=== PATIENT | female | born 1965 | race Hispanic/Latino ===

== ENCOUNTER 2019-02-21 16:41 | Emergency (ER) | payer BC, SELFPAY ==
--- OUTSIDE RECORDS SUMMARY | 2019-02-21 16:43 | XMS REPORT ---
:1965 Author Organization [facility] Address [address] [place] [address] Dr. Tabares [address] [place] [id number] Care Team Providers Name Role Phone Unavailable Unavailable Unavailable Problems This patient has no known problems. Allergies, Adverse Reactions, Alerts This patient has no known allergies or adverse reactions. Medications This patient has no known medications.
--- NOTE | 2019-02-21 18:06 | RAD REPORT ---
EXAM DESCRIPTION: US - Abdomen Exam Limited - 02/21/2019 5:52 pm CLINICAL HISTORY: Abdominal pain. COMPARISON: None. FINDINGS: Multiple gallstones. The gallbladder wall appears mildly thickened. The biliary tree is normal caliber. IMPRESSION: Cholelithiasis. Mild gallbladder wall thickening may indicate cholecystitis
--- NOTE | 2019-02-21 18:07 | RAD REPORT ---
EXAM DESCRIPTION: Kendell Single View02/21/2019 5:54 pm CLINICAL HISTORY: cough COMPARISON: none FINDINGS: The lungs appear clear of acute infiltrate. The heart is normal size IMPRESSION: No acute abnormalities displayed
[2019-02-21] MEDS ORDERED: FAMOTIDINE 20 MG/2 ML VIAL IV ONE (18:19)
[2019-02-21] MEDS ORDERED: ONDANSETRON 4 MG/2 ML VIAL ONE (18:19)
[2019-02-21] MEDS ORDERED: PIPER/TAZO/NS 3.375gm 3.375 GM/100 ML BAG ONE (18:19)
[2019-02-21] MEDS ORDERED: MORPHINE 4 MG/ML SYR ONE (18:19)
[2019-02-21] MEDS ORDERED: NA CHLORIDE 0.9% 1,000 ML ONE (18:19)
[2019-02-21 18:36] LABS: Absolute Lymphocytes (CBC) 0.9 K/uL (0.7-4.9); Basophils % 0.2 % (0-1.3); Hematocrit 34.9 % (36.0-45.0); MPV 8.6 fL (7.6-11.3); RBC Red Blood Cell Count 3.64 M/uL (3.86-4.86)
[2019-02-21 18:43] LABS: Protime INR 1.24
[2019-02-21 19:07] LABS: ALT/SGPT 161 U/L (12-78); AST/SGOT 97 U/L (15-37); Albumin 3.8 g/dL (3.4-5.0); Alkaline Phosphatase 149 U/L (45-117); BUN Blood Urea Nitrogen 23 mg/dL (7-18); Bicarbonate 30 mmol/L (21-32); Bilirubin Direct 1.1 mg/dL (0-0.2); Bilirubin Total 4.7 mg/dL (0.2-1.0); Glucose Level 94 mg/dL (74-106); Magnesium 2.4 mg/dL (1.8-2.4); NT PRO-BNP 171 pg/mL (<125); Potassium 3.8 mmol/L (3.5-5.1); Protein, Total 7.5 g/dL (6.4-8.2); Sodium Level 138 mmol/L (136-145); Troponin (Emerg Dept Use Only) < 0.02 ng/mL (0.0-0.045)
--- NOTE | 2019-02-21 19:30 | ER ---
Nurse's Notes [facility] Name: Emma Bae Age: 53 yrs Sex: Female : 1965 Arrival Date: 02/21/2019 Time: 16:42 Bed 7 Private MD: Maico Flores H Diagnosis: Cholecystitis;Cholelithiasis-choledocolithiasis;Abdominal tenderness Presentation: 02/21 17:26 Presenting complaint: Patient states: since Thursday i have been hurting in the right tw2 side of my stomach, i went to [facility] and they did a CT, and dr. 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 Transition of care: patient was not received from another setting of care. Onset of symptoms was February 21, 2019. Risk Assessment: Do you want to hurt yourself or someone else? Patient reports no desire to harm self or others. Initial Sepsis Screen: Does the patient meet any 2 criteria? No. Patient's initial sepsis screen is negative. Does the patient have a suspected source of infection? No. Patient's initial sepsis screen is negative. Care prior to arrival: None. 17:26 Method Of Arrival: Ambulatory tw2 17:26 Acuity: SYDNEY 3 tw2 Triage Assessment: 17:27 Pain: Complains of pain in right upper quadrant and right lower quadrant. GI: Reports tw2 lower abdominal pain, upper abdominal pain, nausea, vomiting. 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 - Family history:: not pertinent. - Social history:: Smoking status: Patient/guardian denies using tobacco. - Ebola Screening: : No symptoms or risks identified at this time. Screenin:51 Abuse screen: Denies threats or abuse. Nutritional screening: No deficits noted. sv Tuberculosis screening: No symptoms or risk factors identified. Fall Risk None identified. Assessment: 17:45 General: Appears in no apparent distress. Behavior is calm, cooperative. Pain: Pain hb currently is 8 out of 10 on a pain scale. Neuro: Level of Consciousness is awake, alert, obeys commands, Oriented to person, place, time, situation. Cardiovascular: Heart tones S1 S2 present Capillary refill < 3 seconds Patient's skin is warm and dry. Respiratory: Airway is patent Respiratory effort is even, unlabored, Respiratory pattern is regular, symmetrical, Breath sounds are clear bilaterally. GI: Abdomen is non-distended, Bowel sounds present X 4 quads. Abd is soft X 4 quads Abdomen is tender to palpation RUQ Reports upper abdominal pain, nausea. : No signs and/or symptoms were reported regarding the genitourinary system. EENT: No signs and/or symptoms were reported regarding the EENT system. Derm: Skin is dry, Skin is jaundiced, Skin temperature is warm. Musculoskeletal: No signs and/or symptoms reported regarding the musculoskeletal system. 18:45 Reassessment: Patient appears in no apparent distress at this time. Patient and/or hb family updated on plan of care and expected duration. Pain level reassessed. Patient is alert, oriented x 3, equal unlabored respirations, skin warm/dry/pink. 19:20 Reassessment: Patient and/or family updated on plan of care and expected duration. Pain vc level reassessed. Patient is alert, oriented x 3, equal unlabored respirations, skin warm/dry/pink. Patient denies pain at this time. 19:23 Reassessment: Patient ambulating to bathroom with . vc 20:35 Reassessment: Report called to Nadiya ZIMMER at [facility]. ea 21:03 Reassessment: Patient and/or family updated on plan of care and expected duration. Pain ea level reassessed. Patient is alert, oriented x 3, equal unlabored respirations, skin warm/dry/pink. Report given to [facility]. Pt left ED via stretcher per EMS. Pt tolerating well. Patient denies pain at this time. Vital Signs: 17:27 BP 144 / 79; Pulse 88; Resp 17; Temp 98.2(TE); Pulse Ox 96% on R/A; Weight 64.86 kg tw2 (R); Height 5 ft. 2 in. (157.48 cm); Pain 10/10; 18:15 BP 123 / 75; Pulse 82; Resp 15; Pulse Ox 99% on R/A; hb 19:00 BP 101 / 63; Pulse 95; Resp 18; Pulse Ox 99% on R/A; Pain 0/10; vc 20:30 BP 110 / 69; Pulse 104; Resp 18; Temp 99.7; Pulse Ox 97% on R/A; oe 21:04 BP 103 / 64; Pulse 98; Resp 18; Pulse Ox 98% ; ea 17:27 Body Mass Index 26.15 (64.86 kg, 157.48 cm) tw2 ED Course: 16:42 Patient arrived in ED. as 16:43 Maico Flores MD is Private Physician. as 17:01 Agustin Ibarra MD is Attending Physician. uma 17:27 Triage completed. tw2 17:29 Arm band placed on. tw2 17:44 Ella Alfaro, RN is Primary Nurse. hb 17:53 US Abdomen Limited In Process Unspecified. EDMS 17:54 XRAY Chest (1 view) In Process Unspecified. EDMS 18:11 Initial lab(s) drawn, by ri, sent to lab. Inserted saline lock: 22 gauge in left dh3 antecubital area, using aseptic technique. Blood collected. 18:51 Patient has correct armband on for positive identification. Placed in gown. Bed in low sv position. Call light in reach. Side rails up X 1. Pulse ox on. NIBP on. 18:51 EKG done, by ED staff, reviewed by Agustin Ibarra MD. sv 19:45 Urine Culture Sent. oe 21:02 No provider procedures requiring assistance completed. Patient transferred, IV remains vc in place. Administered Medications: 18:27 Drug: morphine 4 mg Route: IVP; Site: left antecubital; hb 19:25 Follow up: Response: No adverse reaction; Pain is decreased vc 18:27 Drug: Zofran 4 mg Route: IVP; Site: left antecubital; hb 19:25 Follow up: Response: No adverse reaction; Nausea is decreased vc 18:28 Drug: Pepcid 20 mg Route: IVP; Site: left antecubital; hb 19:26 Follow up: Response: No adverse reaction vc 18:28 Drug: Zosyn 3.375 grams Route: IVPB; Infused Over: 60 mins; Site: left antecubital; hb 18:28 Drug: NS 0.9% 1000 ml Route: IV; Rate: 1 bolus; Site: left antecubital; hb Outcome: 19:28 ER care complete, transfer ordered by MD. eaton 21:03 Transferred by ground EMS to [facility]. vc 21:03 Condition: good vc 21:03 Instructed on the need for transfer. 21:04 Patient left the ED. ea Signatures: Dispatcher [employer] Susan Castellano, Agustin Funk RN, MD MD cha Martinez, Amelia as Baxter, Heather, RN RN hb Wise, Tara RN RN 2 Jaciel Benitez [facility] Nathalie Masters RN RN Joanne Beaulieu RN GORAN yepez
--- NOTE | 2019-02-21 19:31 | EDPHYS ---
Physician Documentation [facility] Name: Emma Bae Age: 53 yrs Sex: Female : 1965 Arrival Date: 02/21/2019 Time: 16:42 Bed 7 Private MD: Maico Flores H ED Physician Agustin Ibarra HPI: 02/21 18:00 This 53 yrs old Female presents to ER via Ambulatory with complaints of uma Abdominal Pain. 18:00 The patient presents with abdominal pain in the epigastric area, in the upper abdomen, uma abdominal distention in the epigastric area, in the upper abdomen. Onset: The symptoms/episode began/occurred 2 day(s) ago. The symptoms radiate to back. Associated signs and symptoms: none. The symptoms are described as crampy, steady. Modifying factors: The symptoms are alleviated by nothing, the symptoms are aggravated by food, movement, pressure. Severity of pain: At its worst the pain was moderate in the emergency department the pain is unchanged. The patient has not experienced similar symptoms in the past. 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 - Family history:: not pertinent. - Social history:: Smoking status: Patient/guardian denies using tobacco. - Ebola Screening: : No symptoms or risks identified at this time. ROS: 18:00 Constitutional: Negative for fever, chills, and weight loss, Eyes: Negative for injury, uma pain, redness, and discharge, ENT: Negative for injury, pain, and discharge, Neck: Negative for injury, pain, and swelling, Cardiovascular: Negative for chest pain, palpitations, and edema, Respiratory: Negative for shortness of breath, cough, wheezing, and pleuritic chest pain, Back: Negative for injury and pain, : Negative for injury, bleeding, discharge, and swelling, MS/Extremity: Negative for injury and deformity, Neuro: Negative for headache, weakness, numbness, tingling, and seizure, Psych: Negative for depression, anxiety, suicide ideation, homicidal ideation, and hallucinations, Allergy/Immunology: Negative for hives, rash, and allergies, Endocrine: Negative for neck swelling, polydipsia, polyuria, polyphagia, and marked weight changes, Hematologic/Lymphatic: Negative for swollen nodes, abnormal bleeding, and unusual bruising. 18:00 Abdomen/GI: Positive for abdominal pain, of the epigastric area, right upper quadrant and left upper quadrant. 18:00 Skin: Positive for jaundice, diffusely. Exam: 18:00 Constitutional: This is a well developed, well nourished patient who is awake, alert, uma and in no acute distress. Head/Face: Normocephalic, atraumatic. Eyes: Pupils equal round and reactive to light, extra-ocular motions intact. Lids and lashes normal. Conjunctiva and sclera are non-icteric and not injected. Cornea within normal limits. Periorbital areas with no swelling, redness, or edema. ENT: Nares patent. No nasal discharge, no septal abnormalities noted. Tympanic membranes are normal and external auditory canals are clear. Oropharynx with no redness, swelling, or masses, exudates, or evidence of obstruction, uvula midline. Mucous membranes moist. Neck: Trachea midline, no thyromegaly or masses palpated, and no cervical lymphadenopathy. Supple, full range of motion without nuchal rigidity, or vertebral point tenderness. No Meningismus. Chest/axilla: Normal chest wall appearance and motion. Nontender with no deformity. No lesions are appreciated. Cardiovascular: Regular rate and rhythm with a normal S1 and S2. No gallops, murmurs, or rubs. Normal PMI, no JVD. No pulse deficits. Respiratory: Lungs have equal breath sounds bilaterally, clear to auscultation and percussion. No rales, rhonchi or wheezes noted. No increased work of breathing, no retractions or nasal flaring. Back: No spinal tenderness. No costovertebral tenderness. Full range of motion. MS/ Extremity: Pulses equal, no cyanosis. Neurovascular intact. Full, normal range of motion. Neuro: Awake and alert, GCS 15, oriented to person, place, time, and situation. Cranial nerves II-XII grossly intact. Motor strength 5/5 in all extremities. Sensory grossly intact. Cerebellar exam normal. Normal gait. Psych: Awake, alert, with orientation to person, place and time. Behavior, mood, and affect are within normal limits. 18:00 Abdomen/GI: Inspection: abdomen appears normal, Bowel sounds: normal, Palpation: moderate abdominal tenderness, in the epigastric area, right upper quadrant and left upper quadrant, Liver: no appreciated palpable abnormalities, Hernia: not appreciated. Vital Signs: 17:27 BP 144 / 79; Pulse 88; Resp 17; Temp 98.2(TE); Pulse Ox 96% on R/A; Weight 64.86 kg tw2 (R); Height 5 ft. 2 in. (157.48 cm); Pain 10/10; 18:15 BP 123 / 75; Pulse 82; Resp 15; Pulse Ox 99% on R/A; hb 19:00 BP 101 / 63; Pulse 95; Resp 18; Pulse Ox 99% on R/A; Pain 0/10; vc 20:30 BP 110 / 69; Pulse 104; Resp 18; Temp 99.7; Pulse Ox 97% on R/A; oe 21:04 BP 103 / 64; Pulse 98; Resp 18; Pulse Ox 98% ; ea 17:27 Body Mass Index 26.15 (64.86 kg, 157.48 cm) tw2 MDM: 17:31 Patient medically screened. [facility] 18:02 Data reviewed: vital signs, nurses notes, lab test result(s), EKG, radiologic studies, [facility] plain films, ultrasound. 02/21 17:03 Order name: Basic Metabolic Panel; Complete Time: 19:19 [facility] 02/21 17:03 Order name: CBC with Diff; Complete Time: 20:12 [facility] 02/21 17:03 Order name: LFT's; Complete Time: 19:19 [facility] 02/21 17:03 Order name: Magnesium; Complete Time: 19:19 [facility] 02/21 17:03 Order name: NT PRO-BNP; Complete Time: 19:19 [facility] 02/21 17:03 Order name: PT-INR; Complete Time: 19:07 [facility] 02/21 17:03 Order name: Troponin (emerg Dept Use Only); Complete Time: 19:19 [facility] 02/21 17:03 Order name: XRAY Chest (1 view); Complete Time: 18:23 [facility] 02/21 17:03 Order name: US Abdomen Limited; Complete Time: 18:23 [facility] 02/21 17:03 Order name: Urine Culture [facility] 02/21 18:48 Order name: CBC Smear Scan; Complete Time: 20:12 [facility] 02/21 19:21 Order name: Lipase; Complete Time: 20:09 [facility] 02/21 19:42 Order name: Urine Dipstick--Ancillary (enter results) la 02/21 20:12 Order name: Lactate [facility] 02/21 17:03 Order name: EKG; Complete Time: 17:05 [facility] 02/21 17:03 Order name: Cardiac monitoring; Complete Time: 18:28 [facility] 02/21 17:03 Order name: EKG - Nurse/Tech; Complete Time: 18:28 [facility] 02/21 17:03 Order name: IV Saline Lock; Complete Time: 18:28 [facility] 02/21 17:03 Order name: Labs collected and sent; Complete Time: 18:28 [facility] 02/21 17:03 Order name: O2 Per Protocol; Complete Time: 18:28 [facility] 02/21 17:03 Order name: O2 Sat Monitoring; Complete Time: 18:31 [facility] 02/21 17:03 Order name: Urine Dipstick-Ancillary (obtain specimen); Complete Time: 19:38 [facility] Administered Medications: 18:27 Drug: morphine 4 mg Route: IVP; Site: left antecubital; hb 19:25 Follow up: Response: No adverse reaction; Pain is decreased vc 18:27 Drug: Zofran 4 mg Route: IVP; Site: left antecubital; hb 19:25 Follow up: Response: No adverse reaction; Nausea is decreased vc 18:28 Drug: Pepcid 20 mg Route: IVP; Site: left antecubital; hb 19:26 Follow up: Response: No adverse reaction vc 18:28 Drug: Zosyn 3.375 grams Route: IVPB; Infused Over: 60 mins; Site: left antecubital; hb 18:28 Drug: NS 0.9% 1000 ml Route: IV; Rate: 1 bolus; Site: left antecubital; hb Disposition: 02/21/19 19:28 Transfer ordered to [facility]. Diagnosis are Cholecystitis, Cholelithiasis - choledocolithiasis, Abdominal tenderness. - Reason for transfer: Higher level of care. - Accepting physician [facility]. - Condition is Stable. - Problem is new. - Symptoms have improved. Signatures: Dispatcher [employer] EDAgustin Sutherland MD MD cha Baxter, Heather, RN RN Melia Hagen RN RN tw2 Nathalie Masters RN RN Joanne Beaulieu RN RN vc Corrections: (The following items were deleted from the chart) 21:04 19:28 02/21/2019 19:28 Transfer ordered to [facility]. Diagnosis is ea Cholecystitis; Cholelithiasis - choledocolithiasis; Abdominal tenderness. Reason for transfer: Higher level of care. Accepting physician [facility]. Condition is Stable. Problem is new. Symptoms have improved. uma
[2019-02-21 20:10] LABS: Blood Morphology Comment NOTED (NOT SEEN); Platelet Estimate ADEQ; Urine White Blood Cell Casts OK
[2019-02-21 20:11] LABS: Anisocytosis 1+; Poikilocytosis 1+
[2019-02-21 21:07] LABS: Urine Blood 2+ (NEG); Urine Glucose NEGATIVE (NEG); Urine Protein 1+ (NEG); Urine Specific Gravity 1.025 (1.005-1.030)
[2019-02-21 21:27] VITALS: TEMP 99.7
[2019-02-21 21:29] VITALS: BP 103/64; O2SAT 98
--- NOTE | 2019-02-22 09:00 | EKG ---
Test Date: 2019-02-21 Test Time: 18:42:20 Resident Care Director: ORACIO MEASUREMENT RESULTS: Intervals: Rate: 93 WI: 134 QRSD: 88 QT: 330 QTc: 410 [place]: P: 37 WI: 134 QRS: 24 T: 15 INTERPRETIVE STATEMENTS: Normal sinus rhythm Cannot rule out Anterior infarct, age undetermined Abnormal ECG No previous ECG available for comparison Electronically Signed On 02-22-19 08:57:55 AIRCRAFT MAINTENANCE SUPERVISOR by Tylor Georges
== END 2019-02-21 21:04 | disposition short-term general hospital (02) ==
LOC: ER 16:41
DX: K80.10 Calculus of gallbladder with chronic cholecystitis without obstruction (principal); K80.50 Calculus of bile duct without cholangitis or cholecystitis without obstruction
CPT/HCPCS: 36415; 71045; 76705; 80048; 80076; 81003; 83605; 83690; 83735; 83880; 84484; 85025; 85610; 87086; 87088; 93005; 96374; 96375; 99285; J2405; J2543; J7030

== ENCOUNTER 2019-11-18 05:59 | Day surgery (SDC) | payer OTHER ==
--- NOTE | 2019-11-11 12:14 | RAD REPORT ---
EXAM DESCRIPTION: Kendell Garvin (2 Views)11/11/2019 12:08 pm CLINICAL HISTORY: Preop for rotator cuff repair COMPARISON: February 2019 FINDINGS: The lungs appear clear of acute infiltrate. The heart is normal size IMPRESSION: No acute abnormalities displayed
[2019-11-11 12:32] LABS: Absolute Lymphocytes (CBC) 1.7 K/uL (0.7-4.9); Hematocrit 35.8 % (36.0-45.0); Lymphocytes % 47.1 % (15.3-44.8); MPV 8.1 fL (7.6-11.3); RBC Red Blood Cell Count 3.68 M/uL (3.86-4.86)
[2019-11-11 12:36] LABS: Protime INR 0.94
[2019-11-11 12:50] LABS: BUN Blood Urea Nitrogen 20 mg/dL (7-18); Bicarbonate 32 mmol/L (21-32); Glucose Level 88 mg/dL (74-106); Potassium 3.9 mmol/L (3.5-5.1); Sodium Level 145 mmol/L (136-145)
[2019-11-18] MEDS ORDERED: Ringers Lactate 1,000 ML IV ONE (06:25)
[2019-11-18] MEDS ORDERED: CEFAZOLIN/SWI 1gm 1 GM/10 ML SYR ONE (06:26)
[2019-11-18] MEDS ORDERED: LIDOCAINE 2% MPF 5 ML VIAL ONE ×2 (06:47→07:30)
[2019-11-18] MEDS ORDERED: MIDAZOLAM HCL 2 MG/2 ML INJ ONE (06:48)
[2019-11-18] MEDS ORDERED: FENTANYL CITR 250 MCG/5 ML ONE (06:48)
[2019-11-18] MEDS ORDERED: dexAMETHasone 10 MG/ML VIAL ONE ×2 (06:48→07:34)
[2019-11-18] MEDS ORDERED: ROPLVACAINE HCL 40 ML ONE (06:49)
[2019-11-18] MEDS ORDERED: EPINEPHRINE/PF 1 MG/ML AMP ONE (07:13)
[2019-11-18] MEDS ORDERED: propofoL 200 MG/20 ML VIAL IV ONE (07:29)
[2019-11-18] MEDS ORDERED: ROCURONIUM 50 MG/5 ML VIAL IV ONE (07:30)
[2019-11-18] MEDS ORDERED: ONDANSETRON 4 MG/2 ML VIAL ONE (07:34)
[2019-11-18] MEDS ORDERED: KETOROLAC 30 MG/ML INJ ONE (07:34)
[2019-11-18] MEDS ORDERED: GLYCOPYRROLATE 0.2 MG/ML SYR ONE (09:50)
[2019-11-18] MEDS ORDERED: NEOSTIGMINE 1 MG/ML -5 ML ONE (09:50)
--- NOTE | 2019-11-18 10:05 | P.BOP ---
Preoperative diagnosis: right shoulder rotator cuff tear, AC arthrosis, impingement syndrome Postoperative diagnosis: same Primary procedure: right shoulder arthroscopic rotator cuff repair Secondary procedure: right shoulder arthroscopic subacromial decompression Other procedure(s): right shoulder arthroscopic distal clavicle excision Estimated blood loss: <10 cc Specimen: none Findings: see dictation Anesthesia: General Complications: None Implants: 1- 5.5 mm Arthrex corkscrew, 2- 4.75 mm Arthrex swivelock Fluids & blood products: per anesthesia record Transferred to: Recovery Room Condition: Good
--- NOTE | 2019-11-18 10:41 | RAD REPORT ---
EXAM DESCRIPTION: RAD - Shoulder 1 View - 11/18/2019 10:28 am FINDINGS: Single internal rotation view of the right shoulder obtained after rotator cuff repair. No acute or suspicious bone or joint finding. No retained surgical instrument. No unexpected finding.
[2019-11-18 10:57] VITALS: BP 128/77; TEMP 97.1; O2SAT 96
[2019-11-18] MEDS ORDERED: HYDROCODONE/APAP 7.5/325 MG TAB ONE (11:18)
--- NOTE | 2019-11-18 22:49 | OP ---
Date of Procedure: 11/18/2019 Surgeon: Oliver Ignacio MD Preoperative Diagnoses: 1.Right shoulder rotator cuff tear. 2.Right shoulder acromioclavicular joint arthrosis. 3.Right shoulder impingement syndrome. Postoperative Diagnoses: 1.Right shoulder rotator cuff tear. 2.Right shoulder acromioclavicular joint arthrosis. 3.Right shoulder impingement syndrome. Procedures Performed: 1.Right shoulder arthroscopic rotator cuff repair. 2.Right shoulder arthroscopic subacromial decompression. 3.Right shoulder arthroscopic distal clavicle excision. Anesthesia: General endotracheal. Fluids: Per Anesthesia record. Estimated Blood Loss: Less than 10 cc. Complications: None. Implants: 1.A 5.5 mm Arthrex corkscrew. 2.A 4.75 mm Arthrex SwiveLock. Indication For Procedure: Ms. Bae is a 54-year-old female, who presented to my clinic with signs and symptoms as well as MRI findings consistent with right shoulder full-thickness rotator cuff tear, impingement syndrome, and AC joint arthrosis. I discussed with the patient at length risks and bene fits associated with operative and nonoperative treatment. She expressed understanding and elected t o proceed with operative treatment. Description Of Procedure: After informed consent was obtained, the patient was identified in the pre operative holding area. The right upper extremity was marked. She was then taken to the PACU where she underwent an interscalene block to her right upper extremity, performed by Anesthesia. She was t hen taken to the operating room, transferred to the operating table in a supine fashion and placed un petty general endotracheal anesthesia. She was then placed in a beach chair position with her extremit ies well padded. The right upper extremity was then examined. The patient had full range of motion and no instability noted. The right upper extremity was then prepped and draped in usual sterile fas hion. A time-out was initiated. The correct patient and procedure were confirmed and identified. T he patient did receive her preoperative prophylactic antibiotics. Via the posterior portal position, a spinal needle was introduced into the glenohumeral joint and the shoulder was injected with 30 cc of normal saline to distend the capsule. A posterior portal was created and arthroscope was brought in via the posterior portal and a diagnostic arthroscopy was performed. An anterior portal was creat ed under direct visualization. It was made high for later distal clavicle excision. The arthroscope was then brought into the diagnostic arthroscopy. The superior labrum was noted to be intact with n o obvious SLAP. The biceps tendon anchor was stable to probe. There were no significant tenosynovit is of the biceps tendon and no fraying noted. The subscapularis was identified. There were no signi ficant fraying or injury to the subscapularis. The humeral head did not have a significant chondroma lacia as well as the glenoid surface. The anterior and posterior labrum were found stable to probe w ith no tear. There were no loose bodies on exam found within the axillary pouch. The patient was no castillo to have a full-thickness tear of the supraspinatus. A standard lateral portal was created. Obtu rator was brought into the glenohumeral joint consistent with a full-thickness tear. The arthroscopi c shaver was then used to clean up the damaged supraspinatus tendon and again full-thickness tear was confirmed. It was then used to debride the greater tuberosity to prepare the greater tuberosity for repair the bleeding bony bed. The arthroscope was then brought in the subacromial space where a sub acromial bursectomy was performed. The supraspinatus tear was identified on the bursal side and debr ided again with an arthroscopic shaver via the lateral portal. The lateral cannula was placed in a s kalie 5.5 mm Arthrex corkscrew. [place] was placed just lateral to the articular service. It was navi ble loaded and the sutures were then passed through the supraspinatus tear in a horizontal mattress f ashion and tied. Two lateral row anchors were then placed with sutures in a crisscross fashion for i ncreased surface area contact onto the greater tuberosity. There was good overall repair and reducti on of the tear onto the greater tuberosity. The remaining suture limbs were then cut after placement onto the lateral row fixation. Next, attention was taken to the subacromial decompression. Radiofr equency ablator was then used to debride the soft tissue off the undersurface of the acromion and an arthroscopic tiarra was then used to perform an acromioplasty to debride any spurs off the undersurface of the acromion. Next, distal clavicle was identified. The anterior cannula was then placed in perla e with the AC joint and radiofrequency ablator and arthroscopic tiarra was then used to perform a dista l clavicle exception. Approximately 5 mm of distal clavicle was excised using an arthroscopic tiarra w ithout complication. The arthroscopic instruments were then removed from the portals without complic ation. The cannulas were removed. The wounds were then irrigated thoroughly with normal saline. Berry bcutaneous tissue was approximated using a 2-0 Vicryl. Skin was approximated using a 3-0 Monocryl. Sterile dressings were applied. The patient was placed in a shoulder immobilizer, awakened, and loco sferred to PACU in stable condition. Postoperative Plan: She will follow up in my clinic next week for wound check. Physical Therapy trung l be started at 3 weeks postoperatively following the medium rotator cuff repair protocol. OBINNA/FARZAD Voice ID: [id number] Report ID: [id number]
--- OUTSIDE RECORDS SUMMARY | 2019-11-23 18:22 | XMS REPORT ---
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
--- OUTSIDE RECORDS SUMMARY | 2019-11-23 18:22 | XMS REPORT ---
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 Points 2 Interpretation Negative How often did you have 6 or more drinks on one Never (0 poin ts) occasion in the past year? How many drinks did you have on a typical day when 3 or 4 (1 point) you were drinking in the past year? How often did you have a drink containing alcohol in Monthly or less (1 point) the past year? Tobacco Use/Smoking Question Answer Notes Are you a never smoker Additional Findings: Tobacco Non-User Current non-smoker REASON FOR REFERRAL No Information VITAL SIGNS No information MEDICATIONS Medication SIG (Take, Route, Frequency, Start Date End Date Status Duration) Meloxicam Active Tramadol HCl Active Escitalopram Oxalate Active Amoxicillin Not-Taking Ondansetron Not-Taking MethylPREDNISolone Not-Takin g Lorazepam Not-Taking Methocarbamol Not-Taking Ibuprofen Not-Taking PredniSONE Not-Taking Acetaminophen-Codeine #3 Not -Taking PROCEDURES No Information RESULTS No Results REASON FOR VISIT pcp clearance- EKG MEDICAL (GENERAL) HISTORY Type Description Date Medical History None Surgical History Hysterectomy Surgical History gastric sleeve 2018 Surgical History Appendectomy Surgical History Surgical History Foot Goals Section No Information Health Concerns No Information MEDICAL EQUIPMENT No Information MENTAL STATUS No Information FUNCTIONAL STATUS No Information ASSESSMENTS No Information PLAN OF TREATMENT Next Appt Details Provider Name:Oliver Riveraga, 2019-11-22 1 0:30:00 AM, [address] [facility] [address], [place], [address], Insurance Providers Payer Name Payer Payer Insured Patient Coverage Coverage End Address Phone Name Relationship to Start Date Jeovany e Insured [facility] [phone] Dottie Stein [facility] [id number] [facility] [id number]
--- OUTSIDE RECORDS SUMMARY | 2019-11-23 18:22 | XMS REPORT | Clinical Summary ---
:1965 Author Organization [facility] Address [address] [place] [address] Care Team Providers Name Role Phone Pcp Primary Care Provider Unavailable Allergies No Known Allergies Medications Medication Sig Dispensed Refills Start Date End Date Status ondansetron Take 1 20 tablet 0 02/25/2019 02/25/2019 Discon tinued (ZOFRAN-ODT) 4 MG tablet (4 mg disintegrating tablet total) by mouth every 8 (eight) hours as needed for up to 7 days. traMADol (ULTRAM) 50 Take 1 30 tablet 0 02/25/2019 03/07/19 20 mg tablet tablet (50 mg total) by mouth every 4 (four) hours as needed for up to 10 days. Max Daily Amount: 300 mg metroNIDAZOLE Take 1 21 tablet 0 02/25/2019 03/04/2019 Expi red (FLAGYL) 500 MG tablet (500 tablet mg total) by mouth 3 (three) times daily for 7 days. ciprofloxacin HCl Take 1 14 tablet 0 02/25/2019 03/04/2019 (CIPRO) 500 MG tablet tablet (500 mg total) by mouth 2 (two) times daily for 7 days. Active Problems Problem Noted Date Elevated bilirubin 02/21/2019 RUQ abdominal pain 02/21/2019 Cholelithiasis 02/21/2019 Acute cholecystitis 02/21/2019 Encounters Date Type Specialty Care Team Description 06/29/2019 Outside Orders Central Scheduling Ferny Johnson Choledo cholithiasis M. (Primary Dx) 05/03/2019 Anesthesia Event Gastroenterology Harsh Drew, SPECIAL DELIVERY CLERK 03/11/2019 Hospital Radiology Ferny Johnson Foreign body in small Encounter M. intestine, subs equent encounter 03/11/2019 Outside Orders Central Scheduling Ferny Johnson Foreign body in small M. intestine, subs equent encounter (Prim tim Dx) 02/24/2019 Anesthesia Event Romy Machuca MD 02/24/2019 Surgery Abena Handley LAPAROSCOPY,CH SILVIA Bahena MD OMY 02/23/2019 Anesthesia Event Gastroenterology Piotr-Brought on, Blancamichelle Vazquez, SPECIAL DELIVERY CLERK 02/23/2019 Surgery Gastroenterology Ferny Johnson PROCEDURE W / C-ARM M. 02/21/2019 [facility] Internal [facility], Calculus of gallbladder with cholecystitis with biliary obstruction, unspecified cholecystitis acuity; - Encounter Medicine MD Marty Elevated bilirubin; 02/25/2019 JUAN R Salazar abdominal p ain; MD Rylan Sepsis without acute organ dysfunction, due to unspecified organism (HCC); Choledocholithi asis 02/21/2019 Travel 02/21/2019 Telephone Gastroenterology Viviane Fernandes Abdominal Pain MD Nataly after 11/22/2018 Social History Tobacco Use Types Packs/Day Years Used Date Former Smoker Smokeless Tobacco: Former User Alcohol Use Drinks/Week oz/Week Comments No Alcohol Habits Answer Date Recorded How often do you have a drink containing alcohol? Never 02/21/2019 How many drinks containing alcohol do you have on a typical Not asked day when you are drinking? How often do you have six or more drinks on one occasion? No t asked Sex Assigned at Date Recorded Not on file Job Start Date Occupation Industry Not on file Not on file Not on file Travel History Travel Start Travel End No recent travel history available. Last Filed Vital Signs Vital Sign [place] Time Taken Blood Pressure 127/67 02/25/2019 9:17 AM [facility] [employer] [facility] Pulse 74 02/25/2019 9:17 AM [employer] Temperature 36.7 C (98 F) 02/25/2019 9:17 AM [employer] Respiratory Rate 18 02/25/2019 9:17 AM [employer] Oxygen Saturation 95% 02/25/2019 9:17 AM [employer] Inhaled Oxygen Concentration - - Weight 65.5 kg (144 lb 6.4 oz) 02/21/2019 10:28 PM [employer] Height 157.5 cm (5' 2") 02/21/2019 10:28 PM [employer] Body Mass Index 26.41 02/21/2019 10:28 PM [employer] SEWER Plan of Treatment Not on file Implants Implanted Type Area Manager Commodities Device Shelf Model / Identifier Expiration Date Ser ial / Lot Stent Panc Advx St [id number] - [id number] IMPLANTS [employer] [id number] / Implanted: Qty: 1 on 02/23/2019 by Ferny Johnson / Procedures Procedure Name Priority Date/Time Associated Diagnosis Comme nts XR ABDOMEN / KUB 1 Routine 03/11/2019 Foreign body in small Results for VIEW 1:32 PM [employer] intestine, subsequent this p rocedure encounter are in the results section. RHYTHM STRIP - SCAN 03/08/2019 4:20 PM [employer] REPORT OF PROCEDURE 02/28/2019 - ENDOSCOPY SCAN 10:12 AM [facility] [employer] [facility] LIPASE Routine 02/25/2019 Results for 3:49 AM [employer] this procedure are in the results section. TRANSFUSION SERVICE 02/24/2019 REPORT - SCAN 6:03 PM [employer] TISSUE EXAM AP Routine 02/24/2019 Results for 9:29 AM [employer] this procedure are in the results section. LAPAROSCOPY,CHOLECY 02/24/2019 Cholecystiti s STECTOMY 8:00 AM [employer]ER Calculus of gallbladder with acute cholecystitis without obstruction CBC W/PLT COUNT & Routine 02/24/2019 Results fo r AUTO DIFFERENTIAL 4:04 AM [employer] this proce dure are in the results section. LIPASE Routine 02/24/2019 Results for 4:04 AM [employer] this procedure are in the results section. CBC W/PLT COUNT & Routine 02/24/2019 Results fo r AUTO DIFFERENTIAL 4:04 AM [employer] this proce dure are in the results section. MAGNESIUM Routine 02/24/2019 Results for 4:04 AM [employer] this procedure are in the results section. HEPATIC FUNCTION Routine 02/24/2019 Results for PANEL 4:04 AM [employer] this procedure are in the results section. BASIC METABOLIC Routine 02/24/2019 Results for PANEL (7) 4:04 AM [employer] this procedure are in the results section. SCREEN, Routine 02/23/2019 Results fo r URINE 11:58 PM [employer] this procedure are in the results section. ABORH, MANUAL Routine 02/23/2019 Results for 8:36 PM [employer] this procedure are in the results section. TYPE AND SCREEN, Routine 02/23/2019 Results for AUTOMATED 6:41 PM [employer] this procedure are in the results section. REPORT OF PROCEDURE 02/23/2019 - ENDOSCOPY URL 1:16 PM [employer] [employer] [facility]ER FL FLUORO Routine 02/23/2019 Results for NON-SPECIFIC UP TO 1:11 PM [employer] this proc edure 1 HOUR are in the results section. ERCP,BALLOON 02/23/2019 Choledocholithiasis SWEEPING 11:00 AM [employer] ERCP,PAPILLOTOMY 02/23/2019 Choledocholithiasis 11:00 AM [employer] ERCP,PANCREATIC 02/23/2019 Choledocholithiasis STENT 11:00 AM [employer] PROCEDURE W/ C-ARM 02/23/2019 Choledocholithiasis 11:00 AM [employer] CBC W/PLT COUNT & Routine 02/23/2019 Results fo r AUTO DIFFERENTIAL 4:11 AM [employer] this proce dure are in the results section. CBC W/PLT COUNT & Routine 02/23/2019 Results fo r AUTO DIFFERENTIAL 4:11 AM [employer] this proce dure are in the results section. MAGNESIUM Routine 02/23/2019 Results for 4:11 AM [employer] this procedure are in the results section. HEPATIC FUNCTION Routine 02/23/2019 Results for PANEL 4:11 AM [employer] this procedure are in the results section. BASIC METABOLIC Routine 02/23/2019 Results for PANEL (7) 4:11 AM [employer] this procedure are in the results section. US ABDOMEN LIMITED Routine 02/22/2019 Results f or 7:58 AM [employer] this procedure are in the results section. CBC W/PLT COUNT & Routine 02/22/2019 Results fo r AUTO DIFFERENTIAL 4:38 AM [employer] this proce dure are in the results section. PROCALCITONIN Routine 02/22/2019 Results for 4:38 AM [employer] this procedure are in the results section. LACTIC ACID, VENOUS Routine 02/22/2019 Results for 4:38 AM [employer] this procedure are in the results section. LIPASE Routine 02/22/2019 Results for 4:38 AM [employer] this procedure are in the results section. CBC W/PLT COUNT & Routine 02/22/2019 Results fo r AUTO DIFFERENTIAL 4:38 AM [employer] this proce dure are in the results section. PROTHROMBIN Routine 02/22/2019 Results for TIME/INR 4:38 AM [employer] this procedure are in the results section. MAGNESIUM Routine 02/22/2019 Results for 4:38 AM [employer] this procedure are in the results section. HEPATIC FUNCTION Routine 02/22/2019 Results for PANEL 4:38 AM [employer] this procedure are in the results section. BASIC METABOLIC Routine 02/22/2019 Results for PANEL (7) 4:38 AM [employer] this procedure are in the results section. after 11/22/2018 Results XR abdomen / KUB 1 view (03/11/2019 1:32 PM [employer]) Specimen Narrative Performed At FINAL REPORT GE RIS EXAM:RAD, ABDOMEN/KUB, 1 VIEW AP DATE: 03/11/2019 1:32 PM INDICATION: foreign body in small intestine ziegler bsequent encounter COMPARISON: None FINDINGS: Supine views of the abdomen showing norm al distribution of air in the small and large bowel. Sutures are seen in the left upper abdomen and surgical clips are seen in the right upp er abdomen. There is a catheter segment approximately 9 cm in l ength projected on the upper central abdomen. Location cannot be prec isely determined, but from its position this may represent a pancre atic stent or catheter fragment in the stomach and proximal duo denum. No acute bony abnormality. Mild degenera tive change is seen at the hips. Lung bases are clear. IMPRESSION: 1. No bowel dilatation or evidence for b owel obstruction. 2. A 9 cm length of catheter is projecte d in the upper abdomen. The location might correspond to a pancreati c stent or catheter fragment in the bowel, possibly stomach and proxi mal duodenum. Correlation with procedural and surgical history is suggested. Signed: Arjun Aldridge MD Report Verified Date/Time:03/11/2019 15:56:43 [place] Location: [facility] [place] [address] [id number] Procedure Note Interface, External Ris In - 03/11/2019 3:58 PM [employer] [facility] FINAL REPORT EXAM: RAD, ABDOMEN/KUB, 1 VIEW AP DATE: 03/11/2019 1:32 PM INDICATION: foreign body in small in testine subsequent encounter COMPARISON: None FINDINGS: Supine views of the abdomen showing norm al distribution of air in the small and large bowel. Sutures are seen in the left upper abdomen and surgical clips are seen in the right upp er abdomen. There is a catheter segment approximately 9 cm in l ength projected on the upper central abdomen. Location cannot be prec isely determined, but from its position this may represent a pancre atic stent or catheter fragment in the stomach and proximal duo denum. No acute bony abnormality. Mild degenera tive change is seen at the hips. Lung bases are clear. IMPRESSION: 1. No bowel dilatation or evidence for b owel obstruction. 2. A 9 cm length of catheter is projecte d in the upper abdomen. The location might correspond to a pancreati c stent or catheter fragment in the bowel, possibly stomach and proxi mal duodenum. Correlation with procedural and surgical history is suggested. Signed: Arjun Aldridge MD Report Verified Date/Time: 03/11/2019 1 5:56:43 [place] Location: [place] [address] Performing Organization Address City/State/Zipcode Phone Number GE RIS RHYTHM STRIP - SCAN (03/08/2019 4:20 PM [employer]) Narrative Performed At This result has an attachment that is no t available. EKG-SCANNED (02/28/2019 10:12 AM [employer] SEWER) Narrative Performed At This result has an attachment that is no t available. Lipase (02/25/2019 3:49 AM [employer] SEWER)Only the most recent of3 resultswithin the time period is included. Lipase 14 8 - 78 U/L [facility] Specimen Blood Narrative Performed At Dismantler ID - [id number] [facility] Performing Organization Address City/[facility]/[place] [address] CENTER TRANSFUSION SERVICE REPORT - SCAN (02/24/2019 6:03 PM [employer] SEWER) Narrative Performed At This result has an attachment that is no t available. Tissue Exam (02/24/2019 9:29 AM [employer] SEWER) Case Report Surgical Pathology Report Case: [id number] [facility] Authorizing Provider:Abena Lehman MD Collected: 02/24/[address] [facility] Ordering Location: [facility] PERIOPERATIVE Received:02/24/2019 1028 SERVICES Pathologist: Johanne Garcia MD Specimen:Gallbladder DIAGNOSIS GALLBLADDER, CHOLECYSTECTOMY: [facility] - ACUTE CHOLECYSTITIS WITH EXTENSIVE ULCERATION AND NECROSIS [facility] - CHOLELITHIASIS Signing Pathologist Direct Phone Line: CPT Code(s) 25507 [facility] ER CLINICAL HISTORY Preop diagnosis: [facility] Cholecystitis, calculus of [facility] gallbladder with acute cholecystitis without obstruction SPECIMEN SOURCE Gallbladder [facility] DAMION SMITH [facility] DESCRIPTION Received in formalin [facility] labeled with the patient's [facility] name, accession number and "gallbladder" is a 8.5 x 4.4 x 1.5 cm previously opened gallbladder with a 0.2 cm in length x 0.2 cm in diameter attached cystic duct. The serosa is lam-pink, focally hemorrhagic, hyperemic and smooth. The specimen is opened to reveal approximately 3ml of yellow turbid bile and a 5.0 x 3.5 x 1.2 cm aggregate of yellow bosselated calculi. There are no calculi lodged within the cystic duct. The mucosa is red-pink, trabeculated and displays an abundant amount of green plaque-like adhesions. The wall measures 0.4 cm thick. Assistant [employer] sections are submitted in A1-A2, with the inked cystic duct margin in A1. PA/pl MICROSCOPIC DESCRIPTION Performed. [facility] Gross assessment was [facility] performed at [place], Department of [facility] Pathology, [address] [place] [id number], Technical component was Formerly named [facility] performed at [place], Department of [facility] Pathology, [address] [place] [address], Professional component was Formerly named [facility] performed at [place], Department of [facility] Pathology, [address] [place] [address], Specimen Tissue Performing Organization Address City/State/Zipcode Phone Number [address] [address] [place] CBC with platelet count + automated diff (02/24/2019 4:04 AM [employer] SEWER)Only the most recent of3 resultswithin the time period is included. WBC 5.2 3.5 - 10.5 K/L [facility] RBC 2.95 (L) 3.93 - 5.22 M/L [facility] Hemoglobin 9.5 (L) 11.2 - 15.7 GM/DL [facility] Hematocrit 29.1 (L) 34.1 - 44.9 % [facility] MCV 98.6 (H) 79.4 - 94.8 fL [facility] MCH 32.2 25.6 - 32.2 pg [facility] HE ALTH [facility] MCHC 32.6 32.2 - 35.5 GM/DL [facility] RDW 12.0 11.7 - 14.4 % [facility] HE ALTH [facility] Platelets 208 150 - 450 K/CU MM [facility] MPV 9.9 9.4 - 12.3 fL [facility] nRBC 0 0 - 0 /100 WBC [facility] % Neutros 65 % [facility] % Lymphs 27 % [facility] % Monos 7 % [facility] % Eos 1 % [facility] % Baso 0 % [facility] # Neutros 3.34 1.56 - 6.13 K/L [facility] # Lymphs 1.39 1.18 - 3.74 K/L [facility] # Monos 0.36 0.24 - 0.36 K/L [facility] # Eos 0.06 0.04 - 0.36 K/L [facility] # Baso 0.00 (L) 0.01 - 0.08 K/L [facility] Immature Granulocytes-Relative 0 0 - 1 % C [facility] Specimen Blood Performing Organization Address City/State/Zipcode Phone Number [facility] [address] [place] [address] CENTER Magnesium (02/24/2019 4:04 AM [employer] SEWER)Only the most recent of3 resultswithin the time period is included. Magnesium 2.0 1.6 - 2.6 mg/dL [facility] Specimen Blood Performing Organization Address City/[facility] Phone Number [address] [address] [place] Hepatic function panel (02/24/2019 4:04 AM [employer]ER)Only the most recent of3 results within the time period is included. Protein, Total 5.5 (L) 6.0 - 8.3 gm/dL [facility] Albumin 3.1 (L) 3.5 - 5.0 g/dL [facility] Total Bilirubin 1.2 0.2 - 1.2 mg/dL [facility] Bilirubin, Direct 0.7 (H) 0.1 - 0.5 mg/dL [facility] Alkaline Phosphatase 130 40 - 150 U/L [facility] AST 13 5 - 34 U/L [facility] ALT 47 6 - 55 U/L [facility] Specimen Blood Performing Organization Address City/[facility]/Zipcode Phone Number [facility] [address] [place] [address] CENTER Basic metabolic panel (02/24/2019 4:04 AM [employer] SEWER)Only the most recent of3 results within the time period is included. Sodium 141 136 - 145 meq/L [facility] Potassium 3.8 3.5 - 5.1 meq/L [facility] Chloride 109 (H) 98 - 107 meq/L [facility] CO2 26 22 - 29 meq/L [facility] BUN 12 7 - 21 mg/dL [facility] Creatinine 0.53 (L) 0.57 - 1.25 mg/dL [facility] Glucose 90 70 - 105 mg/dL [facility] Calcium 8.5 8.4 - 10.2 mg/dL [facility] EGFR Comment: INSUFFICIENT CLINICAL C [facility] DATA TO CALCULATE ESTIMATED [facility] GFR. Specimen Blood Performing Organization Address [facility] Clinic[facility] Phone Number [address] [address] CENTER Screen, urine (02/23/2019 11:58 PM [employer] SEWER) Preg Test, Ur Negative [facility] Specimen Urine Performing Organization Address [facility] Clinic[facility] Phone Number [address] [address] CENTER ABORH, manual (02/23/2019 8:36 PM [employer]WER) ABO Grouping O [facility] Rh Factor POS [facility] Specimen Blood Performing Organization Address [facility] Phone Number [address] [address] Type and screen, automated (02/23/2019 6:41 PM [employer]) ABO/RH AUTOMATED (BEAKER) O POSITIVE [facility] Ab Scrn NEGATIVE [facility] Specimen Blood Performing Organization Address [facility] Phone Number [address] [address] REPORT OF PROCEDURE - ENDOSCOPY URL (02/23/2019 1:16 PM [employer]WER) Narrative Performed At This result has an attachment that is no t available. [place] fluoro non-specific up to 1 hour (02/23/2019 1:11 PM [employer]) Specimen Narrative Performed At FINAL REPORT [email or web address] RIS A fluoroscopic unit was utilized for a p rocedure performed in the operating room. No interpretation was re quested. Please refer to the operative report regarding findings. Ple ase refer to PACS for patient radiation dose information. Signed: Fly Veloz MD Report Verified Date/Time:02/24/2019 19:52:06 [place] Location: [address] Room Procedure Note Interface, External Ris In - 02/24/2019 7:54 PM [employer] FINAL REPORT A fluoroscopic unit was utilized for a p rocedure performed in the operating room. No interpretation was re quested. Please refer to the operative report regarding findings. Ple ase refer to PACS for patient radiation dose information. Signed: Fly Veloz MD Report Verified Date/Time: 02/24/2019 1 9:52:06 [place] Location: [facility] [address] [place] [address] Room Performing Organization Address City/State/Zipcode Phone Number [employer] US abdomen limited (02/22/2019 7:58 AM [employer] SEWER) Specimen Narrative Performed At FINAL REPORT [employer] INDICATION: Choledocholithiasis. Evaluate for biliar y ductal dilation. TECHNIQUE: Abdominal ultrasound limited (right uppe r quadrant). COMPARISON: None available. FINDINGS: The common bile duct is dilated measurin g 0.9 cm in diameter. The intrahepatic bile ducts are prominent me asuring up to 0.4 cm. Many small stones are present in the gallblad petty and the gallbladder is distended (3.3 cm transverse diameter) a nd there is diffuse marked gallbladder wall thickening measuring 1. 0 cm. Liver echotexture and contour are normal . The main portal vein is patent and normal in diameter measuring 1.1 cm. The right kidney is normal in cortical t hickness and size, measuring 12 x 6 x 5 cm. No right renal mass, hydr onephrosis, or kidney stone demonstrated. Pancreas to the extent visualized is nor mal. Visualized part of the IVC unremarkable. Proximal, mid, distal abdominal aorta are normal in caliber. IMPRESSION: Evidence of calculus cholecystitis with biliary ductal dilation, suggesting choledocholithiasis. Signed: Arcadio Mckeon MD Report Verified Date/Time:02/22/2019 13:39:39 [place] Location: [address] [facility] [address] [place] Room Procedure Note Interface, External Ris In - 02/22/2019 1:41 PM [employer] FINAL REPORT INDICATION: Choledocholithiasis. Evaluate for biliar y ductal dilation. TECHNIQUE: Abdominal ultrasound limited (right uppe r quadrant). COMPARISON: None available. FINDINGS: The common bile duct is dilated measurin g 0.9 cm in diameter. The intrahepatic bile ducts are prominent me asuring up to 0.4 cm. Many small stones are present in the gallblad petty and the gallbladder is distended (3.3 cm transverse diameter) a nd there is diffuse marked gallbladder wall thickening measuring 1. 0 cm. Liver echotexture and contour are normal . The main portal vein is patent and normal in diameter measuring 1.1 cm. The right kidney is normal in cortical t hickness and size, measuring 12 x 6 x 5 cm. No right renal mass, hydr onephrosis, or kidney stone demonstrated. Pancreas to the extent visualized is nor mal. Visualized part of the IVC unremarkable. Proximal, mid, distal abdominal aorta are normal in caliber. IMPRESSION: Evidence of calculus cholecystitis with biliary ductal dilation, suggesting choledocholithiasis. Signed: Arcadio Mckeon MD Report Verified Date/Time: 02/22/2019 1 3:39:39 [place] Location: [address] [facility] [place] Room Performing Organization Address City/State/Zipcode Phone Number [facility] Procalcitonin (02/22/2019 4:38 AM [employer] SEWER) Procalcitonin 0.27 (H) <0.05 ng/mL [facility] Specimen Blood Narrative Performed At SEPSIS RISK (ng/mL) [facility] Low:0.05-0.50 Intermediate: 0.51-2.00 High: >=2.01 Performing Organization Address City/[facility]/Zipcode Phone Number [address] [address] [place] Lactic acid, venous (02/22/2019 4:38 AM [employer]) Lactate, Venous 0.8 0.5 - 2.2 mmol/L [facility] Specimen Blood Narrative Performed At Specimen slightly icteric [facility] Performing Organization Address [facility] Phone Number [address] [address] [place] Prothrombin time/INR (02/22/2019 4:38 AM [facility]) Protime 15.9 (H) 11.9 - 14.2 seconds [facility] INR 1.3 <=5.9 [facility] Specimen Blood Narrative Performed At Effective 07/14/2018: PT Reference Range [facility] Change New: 11.9-14.2Previous: 11.7-14.7 RECOMMENDED COUMADIN/WARFARIN INR THERAPY RANGES STANDARD DOSE: 2.0-3.0Includes: PROPHYLAXIS for venous thrombosis, systemic embolization; TREATMENT for venous thrombosis and/or pulmonary embolus. HIGH RISK: Target INR is 2.5-3.5 for patients wiht mechanical heart valves. Performing Organization Address City/[facility] Phone Number [address] [address] CENTER after 11/22/2018 Insurance Payer Benefit Plan / Group Subscriber ID Type Phone A ddress [email or web address] [facility] SELECT xxxxxxxxx HMO/POS CARE CHOICE Advance Directives For more information, please contact:[address] JaramilloOronoco, [place] [phone] Code Status Date Activated Date Inactivated Comments Full Code 02/21/2019 11:43 PM 02/25/2019 1:43 PM This code status was determined by: Patient
--- OUTSIDE RECORDS SUMMARY | 2019-11-23 18:22 | XMS REPORT ---
:1965 Author Organization [facility] Address [address] [place] [address] Care Team Providers Name Role Phone Oliver Ignacio Unavailable [phone] PROBLEMS Type Condition ICD9-CM [id number] Onset Condition SNOMED Code Notes Code Code Dates Status Problem Nontraumatic M75.121 Active [id number] complete tear of right rotator cuff ALLERGIES No Known Allergies ENCOUNTERS from 1965 to 2019-11-15 Encounter Location Date Provider Diagnosis [facility] [address] Oct, Oliver Ignacio Pain , joint, [facility] [address], right [place], [place] M25.511 ; [id number] Nontraumatic co mplete tear of right r otator cuff M75.121 ; Bicipital tendi nitis of right should er M75.21 and Impingement syn drome of right should er M75.41 IMMUNIZATIONS No Information SOCIAL HISTORY Tobacco Use: [...] REASON FOR REFERRAL No Information VITAL SIGNS Height 63 in Oct, Weight 146.8 lbs Oct, Temperature 96.9 degrees Fahrenheit Oct, BMI 26.00 kg/m2 Oct, Blood pressure systolic 120 mm Hg Oct, Blood pressure diastolic 78 mm Hg Oct, MEDICATIONS Medication SIG (Take, Route, Frequency, Start Date End Date Status Duration) Meloxicam Active Tramadol HCl Active Escitalopram Oxalate Active Amoxicillin Not-Taking Ondansetron Not-Taking MethylPREDNISolone Not-Takin g Lorazepam Not-Taking Methocarbamol Not-Taking Ibuprofen Not-Taking PredniSONE Not-Taking Acetaminophen-Codeine #3 Not -Taking PROCEDURES No Information RESULTS No Results REASON FOR VISIT f/u rt shoulder; discuss surgery MEDICAL (GENERAL) HISTORY Type Description Date Medical History None Surgical History Hysterectomy Surgical History gastric sleeve 2017 Surgical History Appendectomy Surgical History Surgical History Foot Goals Section No Information Health Concerns No Information MEDICAL EQUIPMENT No Information MENTAL STATUS No Information FUNCTIONAL STATUS No Information ASSESSMENTS Encounter Date Diagnosis Notes Oct, Impingement syndrome of right shoulder ( ICD-10 - M75.41) Oct, Bicipital tendinitis of right shoulder ( ICD-10 - M75.21) Oct, Nontraumatic complete tear of right rota tor cuff (ICD-10 - M75.121) Oct, Pain, joint, shoulder, right (ICD-10 - M 25.511) PLAN OF TREATMENT Treatment Notes Assessment Notes Clinical Notes Nontraumatic complete tear of I discussed with the patient a t right rotator cuff length her diagnosis and treatment plan and she expressed understanding. Given her acute full thickness tear and continued pain, I recommend operative treatment including right shoulder arthroscopic rotator cuff repair with subacromial decompression and distal clavicle excision with possible biceps tenodesis. I discussed with the patient risks and benefits associated with the procedure at length as well as postoperative rehabilitation and she expressed understanding. She works as an central office associate and we discussed possibly returning to work 2-4 weeks postop. We will proceed with surgery next week. Next Appt Details f/u 1 week postop Reason: Provider Name:Oliver Ignacio 2019-11-22 1 0:30:00 AM, [address], [place], [address], Insurance Providers Payer Name Payer Payer Insured Patient Coverage Coverage End Address Phone Name Relationship to Start Date Jeovany e Insured [facility] [phone] [facility] [id number] [facility] [phone]
--- OUTSIDE RECORDS SUMMARY | 2019-11-23 18:22 | XMS REPORT | Continuity of Care Document ---
:1965 Author Organization [facility] t Address [address] [place] [address] Care Team Providers Name Role Phone Pcp Primary Care Physician Unavailable Valery Johnson Attending Clinician Arlin Drew CRNA Attending Clinician Valery Johnson MD Attending Clinician Lilly Hanson Attending Clinician JACOB Attending Clinician Unavailable Jacob JOSEPH Attending Clinician Martin JOSEPH Attending Clinician Sven JOSEPH Attending Clinician Josef Handley MD Attending Clinician Taylor Serrato CRNA Attending Clinician [phone] Nataly Fernandes MD Attending Clinician JACOB Admitting Clinician Unavailable Payers Payer Name Policy Type Policy Number Effective Date Expiration Date S [facility] xxxxxxxxx [facility] - MGD - Medica l CAREUNITED O Center POS SELECT CHOICExxxxxxxxxH MO/POS Problems Condition Condition Condition Status Onset Resolution Last Treating Co mments Source Name Details Category Date Date Treatment Clinician Date Elevated Elevated Disease [facility] - 00:00: Medical 00 [place] RUQ RUQ Disease Active [facility] abdominal abdominal 02-21 [facility] - pain pain 00:00: Medical 00 [place] Cholelithi Cholelithi Disease Active [facility] asis asis 02-21 [facility] - [facility] 00 [place] Acute Acute Disease Active [facility] cholecysti cholecysti 02-21 ke - tis tis 00:00: Medical 00 [place] Allergies, Adverse Reactions, Alerts This patient has no known allergies or adverse reactions. Social History Social Habit Start Date Stop Date Quantity Comments Source History SDAZ Alcohol [facility] Std Drinks [facility] History MIOH Alcohol [facility] Binge [facility] Sex Assigned At [facility] History SDOH Alcohol 2019-02-21 2019-02-21 1 [facility] - Frequency 00:00:00 00:00:00 [facility] Smoking Status Start Date Stop Date Source Former smoker 2019-02-24 00:00:00 2019-02-24 00:00:00 [facility] Medications Ordered Filled Start Stop Current Ordering Indication Dosage Frequency Signature Comments Components Source Medication Medication Date Date Medication? Clinician (SIG) Name Name traMADol No 50mg Take [address] [facility] [address] (ULTRAM) 50 02-25 tablet (50 L ukes - mg tablet 00:00: 23:59 mg total) Me dical 00 :00 by mouth Center every 4 (four) hours as needed for up to 10 days. Max Daily Amount: 300 mg metroNIDAZO 2019- No 500mg [id number] Take [address] LE (FLAGYL) 02-25 [id number] tablet [facility] - 500 MG 00:00: 23:59 3D (500 mg Medical tablet 00 :00 total) by Center mouth 3 (three) times daily for 7 days. ciprofloxac 2019- No 500mg Q.5D Take [address] in HCl 02-25 tablet [facility] - (CIPRO) 500 00:00: 23:59 (500 mg Me dical MG tablet 00 :00 total) by Cente r mouth 2 (two) times daily for 7 days. ondansetron 4mg Take 1 [facility] (ZOFRAN-ODT 02-25 tablet (4 Najma kes - ) 4 MG 00:00: 00:00 mg total) Medic al disintegrat 00 :00 by mouth Cent er ing tablet every 8 (eight) hours as needed for up to 7 days. Meloxicam Meloxicam Yes Oliver not [facility] Ignacio defined [facility] ent Clinics Escitalopra Escitalopra Yes Oliver not [facility] St m Oxalate m Oxalate Ignacio defined Najma kes - [facility] ent Clinics Vital Signs Vital Name Observation Time Observation Value Comments Source Systolic blood 2019-02-25 09:17:00 127 mm[Hg] [facility] Diastolic blood 2019-02-25 09:17:00 67 mm[Hg] [facility] Heart rate 2019-02-25 09:17:00 74 /min [facility] Body temperature 2019-02-25 09:17:00 36.67 [place] [facility] Respiratory rate 2019-02-25 09:17:00 18 /min [facility] Oxygen saturation in 2019-02-25 09:17:00 95 /min [facility] Arterial blood by Medical Ce nter Pulse oximetry Body height 2019-02-21 22:28:00 157.5 cm [facility] Body weight Measured 2019-02-21 22:28:00 65.5 kg [facility] BMI 2019-02-21 22:28:00 26.41 kg/m2 [facility] Procedures Procedure Date / Time Performed Performing Clinician Sourc e XR ABDOMEN / KUB 1 VIEW 2019-03-11 13:32:00 Ferny Johnson [facility] RHYTHM STRIP - SCAN 2019-03-08 16:20:45 Provider, Default [facility] REPORT OF PROCEDURE - 2019-02-28 10:12:31 Provider, Default [facility] ENDOSCOPY SCAN Scanning [facility] LIPASE 2019-02-25 03:49:00 Rylan Salazar [facility] TRANSFUSION SERVICE 2019-02-24 18:03:29 Provider, Default [facility] - REPORT - SCAN Scanning [facility] TISSUE EXAM 2019-02-24 09:29:00 Abena Handley [facility] LAPAROSCOPY,CHOLECYSTECTO 2019-02-24 08:00:00 Abena Handley [facility] BASIC METABOLIC PANEL (7) 2019-02-24 04:04:00 [facility] HEPATIC FUNCTION PANEL 2019-02-24 04:04:00 [facility] MAGNESIUM 2019-02-24 04:04:00 [facility] LIPASE 2019-02-24 04:04:00 Rylan Salazar [facility] CBC W/PLT COUNT & AUTO 2019-02-24 04:04:00 [facility] SCREEN, URINE 2019-02-23 23:58:00 Leon Vu [facility] ABORH, MANUAL 2019-02-23 20:36:00 Star Heller [facility] TYPE AND SCREEN, 2019-02-23 18:41:[address] [facility] REPORT OF PROCEDURE - 2019-02-23 13:16:06 Ferny Johnson [facility] ENDOSCOPY [facility] [place] FLUORO NON-SPECIFIC UP 2019-02-23 13:11:00 Brad Salazar [facility] TO 1 HOUR [facility] PROCEDURE W/ C-ARM 2019-02-23 11:00:00 Ferny Johnson [facility] ERCP,PANCREATIC STENT 2019-02-23 11:00:00 Ferny Johnson [facility] ERCP,PAPILLOTOMY 2019-02-23 11:00:00 Ferny Johnson [facility] ERCP,BALLOON SWEEPING 2019-02-23 11:00:00 Ferny Johnson [facility] BASIC METABOLIC PANEL (7) 2019-02-23 04:11:00 [facility] HEPATIC FUNCTION PANEL 2019-02-23 04:11:00 [facility] MAGNESIUM 2019-02-23 04:11:00 [facility] CBC W/PLT COUNT & AUTO 2019-02-23 04:11:00 [facility] US ABDOMEN LIMITED 2019-02-22 07:58:00 Lamar Pipe [facility] BASIC METABOLIC PANEL (7) 2019-02-22 04:38:00 [facility] HEPATIC FUNCTION PANEL 2019-02-22 04:38:00 [facility] MAGNESIUM 2019-02-22 04:38:00 [facility] PROTHROMBIN TIME/INR 2019-02-22 04:38:00 [facility] LIPASE 2019-02-22 04:38:00 [facility] LACTIC ACID, VENOUS 2019-02-22 04:38:00 [facility] PROCALCITONIN 2019-02-22 04:38:00 [facility] CBC W/PLT COUNT & AUTO 2019-02-22 04:38:00 [facility] Encounters Start End Encounter Admission Attending Care Care Encounter Source Date/Time Date/Time Type Type Clinicians Facility Department ID 2019-11-14 2019-11-14 Outpatient [facility] [id number] [facility] 2019-11-10 2019-11-10 [facility] [id number] 2019-10-26 2019-10-26 [facility] [id number] 11:35:00 11:35:00 [facility] 2019-10-12 2019-10-12 [facility] [id number] 08:00:00 08:00:00 [facility] 2019-03-11 2019-03-11 Office Alex, GENETM [id number] 11:08:00 16:18:47 Visit Ferny M. AMBULATOR [id number] Y [id number] 2019-03-11 2019-03-11 Office West, BCM [id number] 11:52:47 12:07:47 Visit Ella AMBULATOR [id number] Lilly Y [id number] [id number] Results Test Description Test Time Test Comments Results Result [facility] e Comments RAD, ABDOMEN/KUB, 2019-02-17 Reason for FINAL REPORT 1 VIEW AP 4 Exam:->foreign PATIENT ID: 15:56:[id number] body in small [id number] EXAM: intestine RAD, ABDOMEN/KUB, 1 subsequent VIEW APDATE: encounter 03/11/2019 1:32 PM INDICATION: foreign body in small intestine subsequent encounter COMPARISON: None FINDINGS:Supine views of the abdomen showing normal distribution of air in the small and large bowel. Sutures are seen in the left upper abdomen and surgical clips are seen in the right upper abdomen. There is a catheter segment approximately 9 cm in length projected on the upper central abdomen. Location cannot be precisely determined, but from its position this may represent a pancreatic stent or catheter fragment in the stomach and proximal duodenum. No acute bony abnormality. Mild degenerative change is seen at the hips. Lung bases are clear. IMPRESSION: 1. No bowel dilatation or evidence for bowel obstruction. 2. A 9 cm length of catheter is projected in the upper abdomen. The location might correspond to a pancreatic stent or catheter fragment in the bowel, possibly stomach and proximal duodenum. Correlation with procedural and surgical history is suggested. Signed: Arjun Aldridge MDReport Verified Date/Time: 03/11/2019 15:56:43 Reading Location: [facility] Reading Room [address] [place] [address] abdomen / KUB 2019-02-17 Interface, External [facility] 1 view 4 Ris In - 03/11/2019 - Med ical 15:56:00 3:58 PM [facility] Center REPORT EXAM: RAD, ABDOMEN/KUB, 1 VIEW APDATE: 03/11/2019 1:32 PM INDICATION: foreign body in small intestine subsequent encounter COMPARISON: None FINDINGS:Supine views of the abdomen showing normal distribution of air in the small and large bowel. Sutures are seen in the left upper abdomen and surgical clips are seen in the right upper abdomen. There is a catheter segment approximately 9 cm in length projected on the upper central abdomen. Location cannot be precisely determined, but from its position this may represent a pancreatic stent or catheter fragment in the stomach and proximal duodenum. No acute bony abnormality. Mild degenerative change is seen at the hips. Lung bases are clear. IMPRESSION: 1. No bowel dilatation or evidence for bowel obstruction. 2. A 9 cm length of catheter is projected in the upper abdomen. The location might correspond to a pancreatic stent or catheter fragment in the bowel, possibly stomach and proximal duodenum. Correlation with procedural and surgical history is suggested. Signed: Arjun Aldridge MDReport Verified Date/Time: 03/11/2019 15:56:43 Reading Location: [facility] Reading Room [address] [place] [address] Tissue Exam 2019-03-01 17:47:00 Test Item Value Reference Range Interpretation Comme nts Case Report (test code = 104) Surgical Pathology Report Case: [id number] Authorizing Provider: Abena Handley MD Collected: 02/24/2019 0929 Ordering Location: [facility] Received: 02/24/2019 1028 SERVICES Pathologist: Johanne Garcia MD Specimen: Gallbladder DIAGNOSIS (test code = 3220) c1wnrAMuEKFyd2xbUBWrwESuNaGqPqPcXmBwFq pc mJRkVJyckyIjBRaku9PfR3ItVyTbGKbkbsVkQXVz MkioepkaMQNrGUI3gsUtHQJgJWqjCFMeOVvyLg8l gYHrvRflZfPhBUUlf3othmYRiflisJg7e1gqOSUh UmW9qFPpADuqZ3mmynOxfASjFYRxGLe5qF20BZOv dN6uyPKfJFydbqBbBjH9CPooXACtDxZ6LMUrbIRq JSGjF5tkVOFtTItyFUEkXKqfgHPyIQM3iOioa6V2 iQNelOUjmHcvHgOiFuSiMWVTs6HvXLf7oEyuJ0Hz OABzLeX9eHEfDAKpMDvpZPGjMTQssqY3vL20MDht mdG6yABfx0Mkg53gl965xW6beNHuVBJ5AUXcRAVx mZLkDWApPBC6VEBxoSVcI2o9FgRheLQlL9W3UqTd jDJoI2A0CpTksYPpR4J1PuHvwYMrYSFpiQMrLa5s kPHicPXrip9bgw48YLK3n1YkeOubXQL7JWU9TbAj Do1msTJrDDRoBW4vQxFeaACuSQYsbh34lFjoTPos ujRulM2gRnKuSLXgpSOzZZAwBE9fzIQoRDUuuF4r padcYBFjJjWtkgvzZBMdaJdxzjSzLw4dmDicQNO1 NDupT2zgcX0eDxB1KBttH9dtxG9nXAb9WQdpbEG0 MJKkmJ9yHO4ogcmve8cpWsGeHG7lblyfc3poKvBz QP8iqwe9r4iuRdSjBE9nnhpte7ukDqFzKPvjJTUk crqnMSZad2WdwyogVSHne2NpQ8SuwQpxQ21fbEfh X93sWIDkwQqjdN1xeFkrdJ1lMuDpLdYkCCvrjZtq tMIlqkykYKqtsgRtQXuvdompWADzZYqxK9whOxMx XHLfnBxdXEsbv4NpJXZeTGMmZgFaR7AAREGKTSST GPStRFEZP0hHP1mCCLWUQE9VRTnqkJUpZPwnEObf VEVbPCdjAHJfETEdRsOxuIyrvX9iFtFpTtRvZWol PK6jXJXcM9kbmXLaIFAmOFUwI1cbVjGbvB0nlOno QVgmmhWpYM2wGWNFUIRbA8fKZMUXNPNCBYRSDvAN NYLYLCQDQVMRQ3pOSZVJPMDWXsKQWM2ZMCQOTTIT PZDZA8CUI9dfYOEkZSSETG2MKUwMZVpDWOGCX8go OWN1c5rhrQMfINJvxCHzVMRtVMhcxxIxUDNqRyml kulmDFXiWNI6ffLxUPZqWHdsMCFvBRcnPn6miUKu jPffPuKcWLXpd8rkvqICinrkgSb4a3wxIAWlLnX0 jGPrAHjdQ0kognVuwADkSYLtNWy8xT54PMTwkF1u jJJfWOwckyPrNmN6FPxlHRLjUrD5KUGvcMExQURh D0mdIVGiGXqgFBCpWQsahYTgXYP0eQaoy0X0mIQb oTIysLhfVjHxZrXhYuEYt2ZaGZg0oXcpC0EzNXJn ZtQ2hCGhWLIxAQnfSYKxGMArllX1eH99IBcberB2 zAIie0Xlo72dr220qY9lbNKpYNJ6OUNnMLDizEWv JBOuUBG3XBQmlXJyI2icJUDwQU3obsrmQWufQLpd CHTfwBR3YDSvdELkT4EbMLDzKKntJYXfrjv7WhZc Of2qaMKqgHakDQeuz0vcv1hwvYDdDep7QKFaDbDt JqcvVWtlt8Rqu3etYOWdwy0cKPR6lAKekGdpj0N0 xQGhTDMgsXMlQYZcGW5wuBXcJLQcaT5pcrvjFYJp ZhTswsvrWSFpzWyfagHhAg4reYibHZL3GLhcD0mv lQ0rLyE8QBsjM2dekG4mDJm7VChrMGTjvLG8ucH8 AMWyrETsN1OlyL0qPHFnSY3jfti8l1fhPDY3MOjl CWEuZfE0kiL7XQXbyPRkMOYwsYshIBxtk909PJF4 KyYkPFXvk6FxD0FaxIdiP15qkEssH84qYLZwpPhh vO0krHaffF2lKwSbYbKkYNvslZsvOD3qDQLhM7id bKQmVQTtYCTpU9lqAgHedI5hoJshLJbjvzJhTGPj Glg7YQRigNDtFRDpGus5KDFhIWUhZ19ydcxoBJH4 qO2rp2owu1EkPOtoQYV8BYAvq87kCQfqupG4CSjm Gt2sWcQjISK5IYfcHKB2yL== CPT Code(s) (test code = 3357) w1kieTAsSAKbxSDlOhThUGKnZWNun8hbIEBu bGFu UwHxPnDyCcAlFseboTFkVKGfByYlu0car591nYTu p6zzNHOzSrE9wYMfFKDeqAMbO882g2jmm9xmkoDx cGU0TWIbOPB4BFvofeRoyiW4KItgmBKwEnT4CZjq snMtADtzmkEzvxPsXgw5GYBiQ400FZJ1aBvvg9cv HGF2IMGyVGNjKdUbYt4edAPhM859SXCnDUBQEOEq lZz0UQIcouQgzqAhaJBUe397U585q4glMKAwpmIj cIuVdjnvt5gaM646EPSzmZKxpoSzNmIdZZVmmWJt rRY0XKLiBO3utqqtZfDyXK3phkucCpIwJP9xkxv6 OfIhZX9glbwuBoWfIPauSQKazdciJPDvr2Sjzvsy NJ4wW0Oak4X2tB6uuLTjJVUehFFnEhGzJIAdvp0j cMCoRKymf5UvTTN0jjN8wECllCBfQIWyCS96Clxj b2NuImkhWBC0PDIzybXjf2Xgt2hvXmCudhInX3cy U5VrKSTpDHOgHHOmXxLfsdErv4Wbk8VglZYmcCm0 l8wqMBGqKCYjdJlqt2gbGTI4MASaQ6W4rYTds2ck KVbvJMDbdQA6pyxaERlqQYSpjqP0plneLWsiKNQh gBO1fsknBKilPNNkHuU3crnkXTlkDCQqARW9VBxr e581DQZ9NJkbMhqbPXyaJHEpgeSgvuHsrRbaQYDe FSEzBWgmZKWeNNkaFUPoGQFfUaWvfKqrbAknoW6b SdSmKvItSFnaMV6mMLKfI5kxkGZnAJHpSJVpA3ce UmCyqQ1wkAloMCwdquEoVDr5CjW8XROnxa0= CLINICAL HISTORY (test code = 3356) s1eujAGtOXEddJGxTjWuCCDiIAByb4u cZGVmbGFu DwZmCsPkSvRaPgvrdPEsTKFzZvNfy1phy173gMDg s6gaHCTmVoY8dZHuONHraKAyW413p2msy8heytSp rZJ7NZObHBF2GDxzfgQbrwU6AIjptURiCcQ0FIzh dbQeHMvaidBnehMuSvs2NOZzZ414TFT8mOpjo3pz ZSS8WRDkEMMkZkLlKk8ufXAeK678JZMjGIKEYIMj dAf6AJQphgNtqnFxaSNXr343E484b4sdSUJywxRq jWmWfdllm9rjE857IPUttGQbeuFfLlLlKPGczYVj lYS1YMEkHO0msymaOiCoZS3sovxgHyRjZO1qprr8 ElAcZL9ldxemTnWvMDijVAJnqbdqEADzn3Cjuagv KO4dR0Ibf2F5vJ6rbVPdOPEnsFZrYvIzXPTpxo1b iENjMUxnj9VgKXA6ksD4kYAadSEqPGUmYT87Fsxi u1UkEwguETI8YPJljwWjv5Rpp8ztFaUchlFiP8et Q3LoABCmBIGiZPImLsBtemUjs7Xtl8FcgSNsqTc4 o2otQNQwOZJsxGoec3aiKGU3DAMgG6T3jOMkc9wy WXgbJAYdkFN2uataDBohGPStyrN6wqarNSiaMUSb dWI6acnmXRtnKPZiVvB9gpmeTFwlECWgQMR9RDlu z337VWE5KUouUgulGLgpFSXpnxPdunZpfNziEAAq CXOnRIoxZITdEDfgTPPnISCuGnDqnRbusFcxtV5c YvSrBqIdTTkfFG6eBBYgS2qcqWFeLSIeMYBdI7yw RwQgvL0feElvIRxyljQlHUMrAV0aCKCwYXdlo4Zg atutAYBym0haJ9pogCs7pMHzJPOdkVE1xEYuVH6x NNyxgApbyHUuRLUpGBqnoSnkNUC4wBBnI5kzcKHw uPV7tIHfpkZ0fUKii7E1QG8mr4ExeMI4fM6xZVYw cn0= SPECIMEN SOURCE (test code = 3377) w8ahfHLePLJlgMTiRbOnLMMjEKBsd1gd ZGVmbGFu IgTvQdXdJpNeUkwqeHRcPYQtFyPty2fjc791sDZv t0zhDWLhCsH2hPEaKDVnmRCfS270x2oln5zctlWm pBU7MDElXMZ2DPddbjOiwfK1ZIngfVIyJwL7MHfy geNbPEtjakUxkdLdQah5IMAxU251RYK0wLtux5bw PYD0SCKrBKOnHgSgCt0wwDTzM951FQOcQMKCZHTp hHd6PBUjgmWybiLalATTb261N082j1bnBYJxtlYu iKwJuylem0ysV121ODCkyHNvucImCdUvMMXgfBBi pCQ0TBUgBA7icawaKmFbSJ4wvitrDwZgZC5xmuy6 MqUnPN8jnerqWyMcLBekNIDqsxkgHOGos9Wcniwm XX4bF2Enq5F4vK8dmCRbVFUcmUMwYwNcIWSmnn7k kZMuMEcqn7AvPMK2vtD7sMGfcSKyGKSmKW38Aexu u6InIjpfQHF9NQWaayPkr7Wdq0sjSnHfrwVyE9jd A9MjVGCqZOTxWAIuWlEhiwDtm2Ahg4LxgSVtmRn1 g9dcZWIsMCButTweu6uxFBA3JVPaW3A0aNCbx4ag AKyhWYOobIB2bfsdOEyjGFUgjaC7wsahPRofXPJz aBN5lvbnXAeyPUTlEpB6ywmtXPvrQBEfYYA3AFwq c426FFN1HWqwTdhzHZkzBFAbaaHsgcOiyCamCWOv IGQkUKtgOKDyGPygAGGiPLCqGrPrkWrxwKqprQ9e WzCqBqBzYJzvOM6iSPOdU7oegRIxTMNdMPOeO2qk VaVluU0pvToqSNoiglJeQEyehOysnCQlFNSlZRmm YXJ9 GROSS DESCRIPTION (test code = 3366) c1wqaFWkFPFkaFKmMaWhNVMwQNRmo8 lcZGVmbGFu [file] IFxwYXJ9 MICROSCOPIC DESCRIPTION (test code = b7eipVLfCIIrhLNiZtHpWNHcBCRwq3 [place] [id number]) HtMjZzRsMcEdDasyrRSdPHIjHyNrv3lgi236lDNa o8pqQFOrIjY7fBNvFTOcfJGvF029x1ywz3jvatBq iAE4CFMfTHC7VRqkmyFjsdM8PTtccRUvOqM0MPzk pzYbUUtaidFdsgOfCus6CDHpQ807SOO3sQhtb5ho ANU3PQZgWPWrZoApDt1dsIIhV406CTZpUTMCJNOu nBt3QZZmldMyipFyoWOHk965N510o9fxFPCkbtMa oApVmwgko4rgS825YRPdsMCyvaEtNfZkZLEadJUc hIL7CETgGU1vngwkGcYiJO9pnipyOyJzYS6lpry3 IqXfRD1dddyaObNwVVptEBJdztvmKBDjg9Ejlsyy OE7nM4Hwp1Z4zH4oxDCoOEBxyLFwMkIvBPAvib2j fUYpGVvze3LtVJM4pbQ9hYSueNGgUPXsKF72Abvc f4QnOnydOXK4ALHwxnYhr2Uzl8omFqHexvDmH0wa I3WaHWXmZSQhGSExBuFfgnGzq7Rfg3AgmPHmrXl5 p1soVADtTVHzwItww9xeFPT7BVJkE6X8kJOjf5yc AHyeEVAboPQ9rofyMWldORBfteZ9mholCSgaBULq bZG9ciqrRWwsJRTmXgI6yizyWQbfYCSxXWE8VYur q218XXH8MEewOomlUWywSBJzbnOgpdZqgRtcTZTa ETHrOFyfEUYuBTikVKOdCONgFaHdlUkgdLdkbW8w IsBjZzQjORbfPQ7rVQWqS5dcuSFiLTSuOGVwY3sd DtFwkS4ajAmpAGuezuFtPPOuhoDogp1sHC5pmFWd fQ== Gross assessment was performed at (test [facility] enter, code = 2777) Department of Pathology, [address] [place] [address], Technical component was performed at [facility] er, (test code = 2778) Department of Pathology, [address] [place] [address], Professional component was performed at [facility] enter, (test code = 2779) Department of Pathology, [address] [place] [address], [facility] [id number] 17:47:00Surgical Pathology Report Case: [id number] Authorizing Provider: Abena Handley MD Collected: 02/24/201929 Ordering Location: [facility] Received: 02/24/2019 1028 SERVICES Pathologist: Johanne Garcia MD Specimen: Gallbladder GALLBLADDER, CHOLECYSTECTOMY:- ACUTE CHOLECYSTITIS WITH EXTENSIVE ULCERATION AND NECROSIS- CHOLELITHIASIS SigningPathologist Direct Phone Line: [phone] signed by Johanne Garcia MD on 03/01/2019 at 5:47 [id number] diagnosis: Cholecystitis, calculus of gallbladder with acute cholecystitis without obstructionGallbladder Received in formalin labeled with the patient's name, accession number and "gallbladder" is a [...] calculi lodged within the cystic duct. The mucosais red-pink, trabeculated and displays an abundant amount of green plaque-like adhesions. The wall me asures 0.4 cm thick. It Risk And Assurance Manager sections are submitted in A1-A2, with the inked cystic duct margin in A1. PA/pl Performed.[facility], Department of Pathology, [address] [place] [address], [facility] [facility], Department of Pathology,[address] [place] [address], [facility], Department[facility]ology, [address] [place] [address], [id number] 07:39:00 Test Item Value Reference Range Interpretation Comments Lipase (test code = 3040-3) 14 U/L CORTNEY (test code = CORTNEY) Pharmacy General Manager ID - NTP Lab Interpretation (test Normal code = 95005-1) [facility]00 Test Item Value Reference Range Interpretation Comments LIPASE (BEAKER) (test code = 749) 14 U/L Pharmacy General Manager ID - NTPFL, FLUORO, NON-SPECIFIC, UP TO 1 [id number] 19:52:00Reason for exam:->bile duct diseaseFINAL REPORT A fluoroscopic unit was utilized for a procedure performed in the operating room. No interpretation was requested. Please refer to the operative report regarding findings. Please refer to PACS for patient radiation dose information. Signed: Fly Veloz Verified Date/Time: 02/24/2019 19:52:06 Reading Location: [address] Neuro Reading Room [place] fluoro non-specific up to 1 hour 2019-02-24 19:52:00Interface, External Ris In - 02/24/2019 7:54 PM CSTFINAL REPORT A fluoroscopic unit was utilized for a procedure performed in the operating room. No interpretation was requested. Please refer to the operative report regarding findings. Please refer to PACS for patient radiationdose information. Signed: Fly Veloz Verified Date/Time: 02/24/2019 19:52:06 Reading Location: [address] [facility] [id number] 05:03:00 Test Item Value Reference Range Interpretation Comments Sodium (test code = 141 meq/L 743-288 0358-2) Potassium (test code = 3.8 meq/L 3.5-5.1 2823-3) Chloride (test code = 109 meq/L 98-107 H 2075-0) CO2 (test code = 26 meq/L 22-29 2028-9) BUN (test code = 12 mg/dL 7-21 3094-0) Creatinine (test code = 0.53 mg/dL 0.57-1.25 L 2160-0) Glucose (test code = 90 mg/dL 70-105 2345-7) Calcium (test code = 8.5 mg/dL 8.4-10.2 24425-5) EGFR ([place] = [place] [address]-2) CLINICAL DATA T O CALCULATE ESTIM ATED GFR. Lab Interpretation Abnormal (test code = 17857-3) [facility] METABOLIC [id number] 05:03:00 Test Item Value Reference Range Interpretation Comments SODIUM (BEAKER) (test 141 meq/L 136-145 code = 381) POTASSIUM (BEAKER) 3.8 meq/L 3.5-5.1 (test code = 379) CHLORIDE (BEAKER) 109 meq/L 98-107 H (test code = 382) CO2 (BEAKER) (test 26 meq/L 22-29 code = 355) BLOOD UREA NITROGEN 12 mg/dL 7-21 (BEAKER) (test code = 354) CREATININE (BEAKER) 0.53 mg/dL 0.57-1.25 L (test code = 358) GLUCOSE RANDOM 90 mg/dL 70-105 (BEAKER) (test code = 652) CALCIUM (BEAKER) 8.5 mg/dL 8.4-10.2 (test code = 697) EGFR (BEAKER) (test INSUFFIC IENT CLINICAL code = 1092) DATA TO CALCULA TE ESTIMATED GFR. Hepatic function [id number] 05:00:00 Test Item Value Reference Range Interpretation Comments Protein, Total (test code = 2885-2) 5.5 6.0- 8.3 gm/dL L Albumin (test code = 30571-7) 3.1 g/dL 3.5-5 L Total Bilirubin (test code = 1.2 mg/dL 0.2-1.2 1974-03) Bilirubin, Direct (test code = 0.7 mg/dL 0.1-0.5 H 1967-7) Alkaline Phosphatase (test code = 130 U/L 40-150 6768-6) AST (test code = 1920-8) 13 U/L 5-34 ALT (test code = 1742-6) 47 U/L 6-55 Lab Interpretation (test code = Abnormal 59370-1) [facility] Test Item Value Reference Range Interpretation Comments Magnesium (test code = 02216-0) 2.0 mg/dL 1.6-2.6 Lab Interpretation (test code = Normal 33443-9) [facility]2020-01-09 05:00:00 Test Item Value Reference Range Interpretation Comments MAGNESIUM (BEAKER) (test code = 2.0 mg/dL 1.6-2.6 627) HEPATIC FUNCTION [id number] 05:00:00 Test Item Value Reference Range Interpretation Comments TOTAL PROTEIN (BEAKER) (test code = 5.5 gm/dL 6.0-8.3 L 770) ALBUMIN (BEAKER) (test code = 1145) 3.1 g/dL 3.5-5.0 L BILIRUBIN TOTAL (BEAKER) (test code 1.2 mg/dL 0.2-1.2 = 377) BILIRUBIN DIRECT (BEAKER) (test 0.7 mg/dL 0.1-0.5 H code = 706) ALKALINE PHOSPHATASE (BEAKER) (test 130 U/L 40-150 code = 346) AST (SGOT) (BEAKER) (test code = 13 U/L 5-34 353) ALT (SGPT) (BEAKER) (test code = 47 U/L 6-55 347) [id number] 05:00:00 Test Item Value Reference Range Interpretation Comments LIPASE (BEAKER) (test code = 749) 40 U/L 8-78 Screen, [id number] 04:41:00 Test Item Value Reference Range Interpretation Comments Preg Test, Ur (test code = 2112-1) Negative [facility] [id number] 04:41:00 Test Item Value Reference Range Interpretation Comments TEST URINE (BEAKER) (test Negative code = 583) CBC with platelet count + automated [id number] 04:27:00 Test Item Value Reference Range Interpretation Comments WBC (test code = 6690-2) 5.2 3.5- 10.5 K/L RBC (test code = 789-8) 2.95 3.93- 5.22 M/L L MCHC (test code = 786-4) 32.6 32.2- 35.5 GM/DL L Hematocrit (test code = 4544-3) 29.1 % 34.1-44.9 L MCV (test code = 787-2) 98.6 fL 79.4-94.8 H MCH (test code = 785-6) 32.2 pg 25.6-32.2 RDW (test code = 788-0) 12.0 % 11.7-14.4 Platelets (test code = 777-3) 208 150- 450 K/CU MM MPV (test code = 39683-4) 9.9 fL 9.4-12.3 nRBC (test code = 413) 0 0- 0 /100 WBC % Neutros (test code = 429) 65 % % Lymphs (test code = 430) 27 % % Monos (test code = 431) 7 % % Eos (test code = 432) 1 % % Baso (test code = 437) 0 % # Neutros (test code = 670) 3.34 1.56- 6.13 K/L # Lymphs (test code = 414) 1.39 1.18- 3.74 K/L # Monos (test code = 415) 0.36 0.24- 0.36 K/L # Eos (test code = 416) 0.06 0.04- 0.36 K/L # Baso (test code = 417) 0.00 0.01- 0.08 K/L L Immature Granulocytes-Relative 0 % 0-1 (test code = 2801) Lab Interpretation (test code = Abnormal 88689-7) [facility] W/PLT COUNT & AUTO [id number] 04:27:00 Test Item Value Reference Range Interpretation Comments WHITE BLOOD CELL COUNT (BEAKER) 5.2 K/ L 3.5-10.5 (test code = 775) RED BLOOD CELL COUNT (BEAKER) 2.95 M/ L 3.93-5.22 L (test code = 761) HEMOGLOBIN (BEAKER) (test code = 9.5 GM/DL 11.2-15.7 L 410) HEMATOCRIT (BEAKER) (test code = 29.1 % 34.1-44.9 L 411) MEAN CORPUSCULAR VOLUME (BEAKER) 98.6 fL 79.4-94.8 H (test code = 753) MEAN CORPUSCULAR HEMOGLOBIN 32.2 pg 25.6-32.2 (BEAKER) (test code = 751) MEAN CORPUSCULAR HEMOGLOBIN CONC 32.6 GM/DL 32.2-35.5 (BEAKER) (test code = 752) RED CELL DISTRIBUTION WIDTH 12.0 % 11.7-14.4 (BEAKER) (test code = 412) PLATELET COUNT (BEAKER) (test 208 K/CU MM 150-450 code = 756) MEAN PLATELET VOLUME (BEAKER) 9.9 fL 9.4-12.3 (test code = 754) NUCLEATED RED BLOOD CELLS 0 /100 WBC 0-0 (BEAKER) (test code = 413) NEUTROPHILS RELATIVE PERCENT 65 % (BEAKER) (test code = 429) LYMPHOCYTES RELATIVE PERCENT 27 % (BEAKER) (test code = 430) MONOCYTES RELATIVE PERCENT 7 % (BEAKER) (test code = 431) EOSINOPHILS RELATIVE PERCENT 1 % (BEAKER) (test code = 432) BASOPHILS RELATIVE PERCENT 0 % (BEAKER) (test code = 437) NEUTROPHILS ABSOLUTE COUNT 3.34 K/ L 1.56-6.13 (BEAKER) (test code = 670) LYMPHOCYTES ABSOLUTE COUNT 1.39 K/ L 1.18-3.74 (BEAKER) (test code = 414) MONOCYTES ABSOLUTE COUNT (BEAKER) 0.36 K/ L 0.24-0.36 (test code = 415) EOSINOPHILS ABSOLUTE COUNT 0.06 K/ L 0.04-0.36 (BEAKER) (test code = 416) BASOPHILS ABSOLUTE COUNT (BEAKER) 0.00 K/ L 0.01-0.08 L (test code = 417) IMMATURE GRANULOCYTES-RELATIVE 0 % 0-1 PERCENT (BEAKER) (test code = 2801) ABORH, [id number] 20:54:00 Test Item Value Reference Range Interpretation Comments ABO Grouping (test code = 2588) O Rh Factor (test code = 2589) [facility] [id number] 19:42:00 Test Item Value Reference Range Interpretation Comments ABO/RH AUTOMATED (BEAKER) (test O POSITIVE code = 2260) Ab Scrn (test code = 890-4) NEGATIVE [facility]OLIC [id number] 05:16:00 Test Item Value Reference Range Interpretation Comments SODIUM (BEAKER) (test 140 meq/L 136-145 code = 381) POTASSIUM (BEAKER) 4.3 meq/L 3.5-5.1 (test code = 379) CHLORIDE (BEAKER) 106 meq/L 98-107 (test code = 382) CO2 (BEAKER) (test 27 meq/L 22-29 code = 355) BLOOD UREA NITROGEN 16 mg/dL 7-21 (BEAKER) (test code = 354) CREATININE (BEAKER) 0.54 mg/dL 0.57-1.25 L (test code = 358) GLUCOSE RANDOM 86 mg/dL 70-105 (BEAKER) (test code = 652) CALCIUM (BEAKER) 9.0 mg/dL 8.4-10.2 (test code = 697) EGFR (BEAKER) (test INSUFFIC IENT CLINICAL code = 1092) DATA TO CALCULA TE ESTIMATED GFR. Specimen slightly [id number] 05:05:00 Test Item Value Reference Range Interpretation Comments MAGNESIUM (BEAKER) (test code = 2.1 mg/dL 1.6-2.6 627) HEPATIC FUNCTION [id number] 05:05:00 Test Item Value Reference Range Interpretation Comments TOTAL PROTEIN (BEAKER) (test code = 6.1 gm/dL 6.0-8.3 770) ALBUMIN (BEAKER) (test code = 1145) 3.4 g/dL 3.5-5.0 L BILIRUBIN TOTAL (BEAKER) (test code 2.0 mg/dL 0.2-1.2 H = 377) BILIRUBIN DIRECT (BEAKER) (test 1.1 mg/dL 0.1-0.5 H code = 706) ALKALINE PHOSPHATASE (BEAKER) (test 161 U/L 40-150 H code = 346) AST (SGOT) (BEAKER) (test code = 24 U/L 5-34 353) ALT (SGPT) (BEAKER) (test code = 70 U/L 6-55 H 347) Specimen slightly ictericCBC W/PLT COUNT & AUTO [id number] 04:32:00 Test Item Value Reference Range Interpretation Comments WHITE BLOOD CELL COUNT (BEAKER) 6.1 K/ L 3.5-10.5 (test code = 775) RED BLOOD CELL COUNT (BEAKER) 3.17 M/ L 3.93-5.22 L (test code = 761) HEMOGLOBIN (BEAKER) (test code = 10.4 GM/DL 11.2-15.7 L 410) HEMATOCRIT (BEAKER) (test code = 31.7 % 34.1-44.9 L 411) MEAN CORPUSCULAR VOLUME (BEAKER) 100.0 fL 79.4-94.8 H (test code = 753) MEAN CORPUSCULAR HEMOGLOBIN 32.8 pg 25.6-32.2 H (BEAKER) (test code = 751) MEAN CORPUSCULAR HEMOGLOBIN CONC 32.8 GM/DL 32.2-35.5 (BEAKER) (test code = 752) RED CELL DISTRIBUTION WIDTH 12.1 % 11.7-14.4 (BEAKER) (test code = 412) PLATELET COUNT (BEAKER) (test 204 K/CU MM 150-450 code = 756) MEAN PLATELET VOLUME (BEAKER) 10.2 fL 9.4-12.3 (test code = 754) NUCLEATED RED BLOOD CELLS 0 /100 WBC 0-0 (BEAKER) (test code = 413) NEUTROPHILS RELATIVE PERCENT 73 % (BEAKER) (test code = 429) LYMPHOCYTES RELATIVE PERCENT 18 % (BEAKER) (test code = 430) MONOCYTES RELATIVE PERCENT 7 % (BEAKER) (test code = 431) EOSINOPHILS RELATIVE PERCENT 2 % (BEAKER) (test code = 432) BASOPHILS RELATIVE PERCENT 0 % (BEAKER) (test code = 437) NEUTROPHILS ABSOLUTE COUNT 4.46 K/ L 1.56-6.13 (BEAKER) (test code = 670) LYMPHOCYTES ABSOLUTE COUNT 1.09 K/ L 1.18-3.74 L (BEAKER) (test code = 414) MONOCYTES ABSOLUTE COUNT (BEAKER) 0.45 K/ L 0.24-0.36 H (test code = 415) EOSINOPHILS ABSOLUTE COUNT 0.10 K/ L 0.04-0.36 (BEAKER) (test code = 416) BASOPHILS ABSOLUTE COUNT (BEAKER) 0.01 K/ L 0.01-0.08 (test code = 417) IMMATURE GRANULOCYTES-RELATIVE 0 % 0-1 PERCENT (BEAKER) (test code = 2801) U/S, ABDOMINAL, [id number] 13:39:00Abdomen limited area? Add comment if clarification is needed.->Right upper quadrantReason for exam:->Eval GB for cholelithiasis, CBD size, ?intrahepatic bile duct dilation, thanksShould this be performed at the bedside?->YesFINAL REPORT INDICATION: Choledocholithiasis. Evaluate for biliary ductal dilation. TECHNIQUE: Abdominal ultrasound limited (right upper quadrant). COMPARISON: None available. FINDINGS:The common bile duct is dilated measuring 0.9 cm in diameter. The intrahepatic bile ducts are prominent measuring up to 0.4 cm. Many small stones are present in the gallbladder and the gallbladder is distended (3.3 cm transverse diameter) and there is diffuse marked gallbladder wall thickening measuring 1.0 cm. Liver echotexture and contour are normal. The main portal vein is patent and normal in diameter measuring 1.1 cm. The right kidney is normal in cortical thickness and size, measuring 12x 6 x 5 cm. No right renal mass, hydronephrosis, or kidney stone demonstrated. Pancreas to the extent visualized is normal. Visualized part of the IVC unremarkable. Proximal, mid, distal abdominal aorta are normal in caliber. IMPRESSION: Evidence of calculus cholecystitis with biliary ductal dilation,suggesting choledocholithiasis. Signed: Arcadio Mckeon Verified Date/Time: 02/22/2019 13:39:39 Reading Location: [address] Radiology Reading Room US abdomen limited 2019-02-22 13:39:00Interface, External Ris In - 02/22/2019 1:41 PM CSTFINAL REPORT INDICATION: Choledocholithiasis. Evaluate for biliary ductal dilation. TECHNIQUE: Abdominal ultrasound limited (right upper quadrant). COMPARISON: None available. FINDINGS:The common bile duct is dilated measuring 0.9 cm in diameter. The intrahepatic bile ducts are prominent measuring up to 0.4 cm. Many small stones are present in the gallbladder and the gallbladder is distended (3.3 cm transverse diameter) and there is diffuse marked gallbladder wall thickening measuring 1.0 cm. Liver echotexture and contour are normal. The main portal vein is patent and normal in diameter measuring 1.1 cm. The right kidney isnormal in cortical thickness and size, measuring 12 x 6 x 5 cm. No right renal mass, hydronephrosis,or kidney stone demonstrated. Pancreas to the extent visualized is normal. Visualized part of the IVC unremarkable. Proximal, mid, distal abdominal aorta are normal in caliber. IMPRESSION: Evidence of calculus cholecystitis with biliary ductal dilation, suggesting choledocholithiasis. Signed: Arcadio Mckeon Verified Date/Time: 02/22/2019 13:39:39 Reading Location: [address] Radiology Reading [facility] [id number] 06:10:00 Test Item Value Reference Range Interpretation Comments Lactate, Venous (test code 0.8 mmol/L 0.5-2.2 = 2872) CORTNEY (test code = CORTNEY) Specimen slightly icteric Lab Interpretation (test Normal code = 15110-7) [facility] [id number] 06:10:00 Test Item Value Reference Range Interpretation Comments LACTATE BLOOD VENOUS (2) (BEAKER) 0.8 mmol/L 0.5-2.2 (test code = 2872) Specimen slightly ictericCBC W/PLT COUNT & AUTO [id number] 06:04:00 Test Item Value Reference Range Interpretation Comments WHITE BLOOD CELL COUNT (BEAKER) 10.1 K/ L 3.5-10.5 (test code = 775) RED BLOOD CELL COUNT (BEAKER) 3.31 M/ L 3.93-5.22 L (test code = 761) HEMOGLOBIN (BEAKER) (test code = 10.6 GM/DL 11.2-15.7 L 410) HEMATOCRIT (BEAKER) (test code = 33.0 % 34.1-44.9 L 411) MEAN CORPUSCULAR VOLUME (BEAKER) 99.7 fL 79.4-94.8 H (test code = 753) MEAN CORPUSCULAR HEMOGLOBIN 32.0 pg 25.6-32.2 (BEAKER) (test code = 751) MEAN CORPUSCULAR HEMOGLOBIN CONC 32.1 GM/DL 32.2-35.5 L (BEAKER) (test code = 752) RED CELL DISTRIBUTION WIDTH 12.4 % 11.7-14.4 (BEAKER) (test code = 412) PLATELET COUNT (BEAKER) (test 196 K/CU MM 150-450 code = 756) MEAN PLATELET VOLUME (BEAKER) 10.2 fL 9.4-12.3 (test code = 754) NUCLEATED RED BLOOD CELLS 0 /100 WBC 0-0 (BEAKER) (test code = 413) NEUTROPHILS RELATIVE PERCENT 84 % (BEAKER) (test code = 429) LYMPHOCYTES RELATIVE PERCENT 10 % (BEAKER) (test code = 430) MONOCYTES RELATIVE PERCENT 5 % (BEAKER) (test code = 431) EOSINOPHILS RELATIVE PERCENT 0 % (BEAKER) (test code = 432) BASOPHILS RELATIVE PERCENT 0 % (BEAKER) (test code = 437) NEUTROPHILS ABSOLUTE COUNT 8.49 K/ L 1.56-6.13 H (BEAKER) (test code = 670) LYMPHOCYTES ABSOLUTE COUNT 1.04 K/ L 1.18-3.74 L (BEAKER) (test code = 414) MONOCYTES ABSOLUTE COUNT (BEAKER) 0.51 K/ L 0.24-0.36 H (test code = 415) EOSINOPHILS ABSOLUTE COUNT 0.01 K/ L 0.04-0.36 L (BEAKER) (test code = 416) BASOPHILS ABSOLUTE COUNT (BEAKER) 0.01 K/ L 0.01-0.08 (test code = 417) IMMATURE GRANULOCYTES-RELATIVE 1 % 0-1 PERCENT (BEAKER) (test code = 2801) [id number] 06:03:00 Test Item Value Reference Range Interpretation Comments Procalcitonin (test code = 0.27 ng/mL <0.05 H 02723-5) CORTNEY (test code = CORTNEY) SEPSIS RISK (ng/mL)Low: 0.05-0.50Intermedi ate: 0.51-2.00High: >=2.01 Lab Interpretation (test Abnormal code = 61701-4) [id number] 06:03:00 Test Item Value Reference Range Interpretation Comments PROCALCITONIN (BEAKER) (test code 0.27 ng/mL <0.05 H = 3036) SEPSIS RISK (ng/mL)Low: 0.05-0.50Intermediate: 0.51-2.00High: >=2.01BASIC METABOLIC [id number] 05:48:00 Test Item Value Reference Range Interpretation Comments SODIUM (BEAKER) (test 136 meq/L 136-145 code = 381) POTASSIUM (BEAKER) 4.2 meq/L 3.5-5.1 (test code = 379) CHLORIDE (BEAKER) 103 meq/L 98-107 (test code = 382) CO2 (BEAKER) (test 29 meq/L 22-29 code = 355) BLOOD UREA NITROGEN 18 mg/dL 7-21 (BEAKER) (test code = 354) CREATININE (BEAKER) 0.61 mg/dL 0.57-1.25 (test code = 358) GLUCOSE RANDOM 100 mg/dL 70-105 (BEAKER) (test code = 652) CALCIUM (BEAKER) 9.1 mg/dL 8.4-10.2 (test code = 697) EGFR (BEAKER) (test INSUFFIC IENT CLINICAL code = 1092) DATA TO CALCULA TE ESTIMATED GFR. Specimen slightly [id number] 05:43:00 Test Item Value Reference Range Interpretation Comments MAGNESIUM (BEAKER) (test code = 2.2 mg/dL 1.6-2.6 627) HEPATIC FUNCTION [id number] 05:43:00 Test Item Value Reference Range Interpretation Comments TOTAL PROTEIN (BEAKER) (test code = 6.3 gm/dL 6.0-8.3 770) ALBUMIN (BEAKER) (test code = 1145) 3.6 g/dL 3.5-5.0 BILIRUBIN TOTAL (BEAKER) (test code 4.0 mg/dL 0.2-1.2 H = 377) BILIRUBIN DIRECT (BEAKER) (test 1.7 mg/dL 0.1-0.5 H code = 706) ALKALINE PHOSPHATASE (BEAKER) (test 150 U/L 40-150 code = 346) AST (SGOT) (BEAKER) (test code = 47 U/L 5-34 H 353) ALT (SGPT) (BEAKER) (test code = 99 U/L 6-55 H 347) Specimen slightly [id number] 05:43:00 Test Item Value Reference Range Interpretation Comments LIPASE (BEAKER) (test code = 749) 5 U/L 8-78 L Specimen slightly ictericProthrombin time/[id number] 05:33:00 Test Item Value Reference Range Interpretation Comments Protime (test code = 15.9 11.9- 14.2 H 5902-2) seconds INR (test code = 1.3 <=5.9 6301-6) CORTNEY (test code = CORTNEY) Effective 07/14/2018: PT Reference Range ChangeNew: 11.9-14.2 Previous: 11.7-14.7 RECOMMENDED COUMADIN/WARFARIN INR THERAPY RANGESSTANDARD DOSE: 2.0-3.0 Includes: PROPHYLAXIS for venous thrombosis, systemic embolization; TREATMENT for venous thrombosis and/or pulmonary embolus.HIGH RISK: Target INR is 2.5-3.5 for patients wiht mechanical heart valves. Lab Interpretation Abnormal (test code = 62534-0) [facility]PROTHROM[facility]/[id number] 05:33:00 Test Item Value Reference Range Interpretation Comments PROTIME (BEAKER) (test code = 15.9 seconds 11.9-14.2 H 759) INR (BEAKER) (test code = 370) 1.3 <=5.9 Effective 07/14/2018: PT Reference Range ChangeNew: 11.9-14.2 Previous: 11.7- 14.7RECOMMENDED COUMADIN/WARFARIN INR THERAPY RANGESSTANDARD DOSE: 2.0-3.0 Includes: PROPHYLAXIS for venous thrombosis, systemic embolization; TREATMENT for venous thrombosis and/or pulmonary embolus.HIGH RISK: Target INR is2.5-3.5 for patients wiht mechanical heart valves.
--- OUTSIDE RECORDS SUMMARY | 2019-11-23 18:22 | XMS REPORT ---
:1965 Author Organization [employer] Care Team Providers Name Role Phone Oliver Ignacio Provider Role Unavailable Allergies, Adverse Reactions, Alerts Substance Reaction Event Type N.K.D.A. 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
== END 2019-11-18 11:40 | disposition home or self-care (01) ==
LOC: OR 05:59
PROVIDERS: ATTEND Orthopaedic Surgery Sports Medicine
PROC: 0RNJ4ZZ Release Right Shoulder Joint, Percutaneous Endoscopic Approach (ICD-10-PCS; 2019-11-18)
PROC: 0PB94ZZ Excision of Right Clavicle, Percutaneous Endoscopic Approach (ICD-10-PCS; 2019-11-18)
PROC: 0LQ14ZZ Repair Right Shoulder Tendon, Percutaneous Endoscopic Approach (ICD-10-PCS; principal; 2019-11-18 07:30)
DX: M75.121 Complete rotator cuff tear or rupture of right shoulder, not specified as traumatic (principal); M75.41 Impingement syndrome of right shoulder; M19.011 Primary osteoarthritis, right shoulder; M75.21 Bicipital tendinitis, right shoulder; Z20.828 Contact with and (suspected) exposure to other viral communicable diseases
CPT/HCPCS: 29827; 29826; 93005; 85025; 80048; 36415; 85610; 85730; 71046; 73020; 29824; U0002; J2704; J0171; J2250; J3010; J1100 ×2; J2795; J2710; J0690; J7120; J2405